=== PATIENT | female | born 1965 | race Hispanic/Latino ===

== ENCOUNTER 2017-04-03 14:29 | Emergency (ER) | payer MEDICARE ==
[2017-04-03 15:07] LABS: BASOPHILS % (AUTO) 0.9 % (0.0-5.0); EOSINOPHILS % (AUTO) 1.6 % (0.0-8.0); HEMATOCRIT 33.6 % (36-48); LYMPHOCYTES % (AUTO) 26.2 % (21.0-51.0); MEAN CORPUSCULAR HEMOGLOBIN 31.9 pg (27.0-33.0); MEAN CORPUSCULAR HGB CONC 34.8 g/dL (32.0-36.0); MEAN CORPUSCULAR VOLUME 91.8 fL (79-99); MONOCYTES % (AUTO) 7.4 % (3.0-13.0); NEUTROPHILS % (AUTO) 63.9 % (40.0-77.0); PLATELET COUNT (AUTO) 290 K/uL (130-400); RED BLOOD CELL COUNT(AUTO) 3.66 MIL/uL (4.00-5.50); RED CELL DISTRIBUTION WIDTH 14.9 % (11.0-15.5); WHITE BLOOD COUNT (AUTO) 9.2 K/uL (4.8-10.8)
[2017-04-03] MEDS ORDERED: ACETAMINOPHEN EXTRA STRENGTH 500 MG TABLET ONE (15:51)
[2017-04-03 15:58] LABS: ALBUMIN 3.3 g/dL (3.5-5.0); BILIRUBIN,TOTAL 0.3 mg/dL (0.2-1.0); POTASSIUM 4.7 mmol/L (3.5-5.1); TOTAL PROTEIN, SERUM 6.9 g/dL (6.0-8.3)
[2017-04-03 16:23] LABS: CREATININE 8.4 mg/dL (0.5-1.5)
== END 2017-04-03 17:09 | disposition home or self-care (01) ==
LOC: EDH 14:29
DX: I12.0 Hypertensive chronic kidney disease with stage 5 chronic kidney disease or end stage renal disease (principal); N18.6 End stage renal disease; R51 Headache; Z99.2 Dependence on renal dialysis
CPT/HCPCS: 36415; 80053; 85025; 93005

== ENCOUNTER → 2017-11-20 | Outpatient (CLI) | payer MEDICARE | END | disposition home or self-care (01) | LOC: SHCH 08:15 | PROVIDERS: ATTEND Internal Medicine Cardiovascular Disease | DX: I10 Essential (primary) hypertension (principal); R01.1 Cardiac murmur, unspecified | CPT/HCPCS: 93306 ==

== ENCOUNTER → 2017-12-17 | Outpatient (CLI) | payer MEDICARE ==
[~2017-12-17] VITALS: Ht 170.2 cm; Wt 121.6 kg
[~2017-12-17] MED LIST: REGADENOSON 0.4 MG/5 ML PF SYG IVP SCH
== END | disposition home or self-care (01) ==
LOC: SHCH 07:55
PROVIDERS: ATTEND Internal Medicine Cardiovascular Disease
DX: R06.02 Shortness of breath (principal)
CPT/HCPCS: 78452; 93017; 96374; A9500 ×2; J2785

== ENCOUNTER → 2017-12-24 | Outpatient (CLI) | payer MEDICARE | END | disposition home or self-care (01) | LOC: SHCH 13:52 | PROVIDERS: ATTEND Internal Medicine Cardiovascular Disease | DX: I87.2 Venous insufficiency (chronic) (peripheral) (principal) | CPT/HCPCS: 93970 ==

== ENCOUNTER 2018-06-28 21:03 | Inpatient (IN) | payer MEDICARE ==
[~2018-06-28] VITALS: Ht 172.7 cm; Wt 119.4 kg
[2018-06-28 21:37] LABS: BASOPHILS % (AUTO) 0.4 % (0.0-5.0); EOSINOPHILS % (AUTO) 1.1 % (0.0-8.0); HEMATOCRIT 34.3 % (36-48); LYMPHOCYTES % (AUTO) 14.6 % (21.0-51.0); MEAN CORPUSCULAR HEMOGLOBIN 33.4 pg (27.0-33.0); MEAN CORPUSCULAR HGB CONC 35.1 g/dL (32.0-36.0); MONOCYTES % (AUTO) 6.6 % (3.0-13.0); NEUTROPHILS % (AUTO) 77.3 % (40.0-77.0); NUCLEATED RED BLOOD CELLS 0.1 % (0.0-0.19); PLATELET COUNT (AUTO) 262 K/uL (130-400); RED BLOOD CELL COUNT(AUTO) 3.61 MIL/uL (4.00-5.50); RED CELL DISTRIBUTION WIDTH 14.6 % (11.0-15.5); WHITE BLOOD COUNT (AUTO) 10.3 K/uL (4.8-10.8)
[2018-06-28 21:47] LABS: INR 0.89 (0.85-1.15); PARTIAL THROMBOPLASTIN TIME 28.3 SEC (26.3-35.5); PROTHROMBIN TIME 9.4 SEC (9.6-11.6)
[2018-06-28 21:49] LABS: APPEARANCE,URINE SL CLOUDY (CLEAR); BILIRUBIN,URINE NEGATIVE (NEGATIVE); COLOR,URINE YELLOW (YELLOW); GLUCOSE, URINE (UA) NEGATIVE (NEGATIVE); KETONES,URINE NEGATIVE (NEGATIVE); LEUKOCYTE ESTERASE ,URINE NEGATIVE (NEGATIVE); NITRATE,URINE NEGATIVE (NEGATIVE); OCCULT BLOOD,URINE SMALL (NEGATIVE); PH,URINE >=9.0 (5.0-8.0); PROTEIN,URINE 100 mg/dL (NEGATIVE); UROBILINOGEN,URINE 0.2 mg/dL (0.2-1.0)
[2018-06-28 21:51] LABS: CREATININE 5.5 mg/dL (0.5-1.5); POTASSIUM 4.1 mmol/L (3.5-5.1)
[2018-06-28 21:55] LABS: ALBUMIN 3.7 g/dL (3.5-5.0); BILIRUBIN,TOTAL 0.3 mg/dL (0.2-1.0); TOTAL PROTEIN, SERUM 7.3 g/dL (6.0-8.3)
[2018-06-28 22:14] LABS: BACTERIA,URINE Few /HPF (None Seen); RBC,URINE 0-1 /HPF (0-1); SQUAMOUS EPITHELIAL CELL,UR Few /HPF (0-2); TRANSITIONAL EPI CELLS,URINE Rare /HPF (None Seen); WBC,URINE 0-1 /HPF (0-1)
[2018-06-28] MEDS ORDERED: TRAMADOL HCL 50 MG TABLET ONE (22:54)
[2018-06-28] MEDS ORDERED: ZOSYN 3.375GM+NS 50ML 50 ML IV ONE (22:57)
[2018-06-28] MEDS ORDERED: PANTOPRAZOLE SODIUM 40 MG TABLET.DR PO ONE (23:17)
[2018-06-28] MEDS ORDERED: METHYLPREDNISOLONE SOD SUCC 40MG/ML 1ML ONE (23:17)
[2018-06-28] MEDS ORDERED: VANCOMYCIN 1GM+NS 250ML 500 ML IV ONE (23:41)
[2018-06-28] MEDS ORDERED: VANCOMYCIN PROTOCOL PER PHARMACY IV SCH (23:45)
[2018-06-28] MEDS ORDERED: ACETAMINOPHEN 325 MG TAB PO PRN (23:45)
[2018-06-29] VITALS (7 sets, daily range): BP systolic 130–158; BP diastolic 57–86
[2018-06-29] MEDS ORDERED: VANCOMYCIN 2 GM in SODIUM CHLORIDE 0.9% 500ML 500 ML IV SCH (02:00)
--- NOTE | 2018-06-29 02:12 | NUR ---
ADMIT Admitted from ER,English speaking.Placed on Droplet precaution for Dx Pneumonia.Pt denies sob,c/o pain to her back.Admission care rendered.Home meds pending to be brought in per family.
--- NOTE | 2018-06-29 03:12 | NUR ---
ASLEEP Pt asleep during rounds.Not in distress.
[2018-06-29 04:24] LABS: HEMATOCRIT 32.8 % (36-48); MEAN CORPUSCULAR HEMOGLOBIN 31.8 pg (27.0-33.0); MEAN CORPUSCULAR HGB CONC 33.5 g/dL (32.0-36.0); MEAN CORPUSCULAR VOLUME 94.8 fL (79-99); PLATELET COUNT (AUTO) 273 K/uL (130-400); RED BLOOD CELL COUNT(AUTO) 3.46 MIL/uL (4.00-5.50); RED CELL DISTRIBUTION WIDTH 14.5 % (11.0-15.5); WHITE BLOOD COUNT (AUTO) 8.8 K/uL (4.8-10.8)
[2018-06-29 04:38] LABS: ALBUMIN 3.4 g/dL (3.5-5.0); BILIRUBIN,TOTAL 0.4 mg/dL (0.2-1.0); CREATININE 6.3 mg/dL (0.5-1.5); POTASSIUM 4.5 mmol/L (3.5-5.1); TOTAL PROTEIN, SERUM 7.2 g/dL (6.0-8.3)
[2018-06-29] MEDS ORDERED: VANCOMYCIN PROTOCOL PER PHARMACY IV SCH (06:30)
--- NOTE | 2018-06-29 06:33 | NUR ---
MD Dr MYRTLE SNYDER rounding.Notified of pt.s c/o of pain to her back,see new order.
[2018-06-29] MEDS: IPRATROPIUM/ALBUTEROL SULFATE 3 ML SOLUTION IH SCH ×3 (06:56→21:40)
--- NOTE | 2018-06-29 07:37 | NUR ---
VANCOMYCIN Pt received 2 gm Vancomycin in ER last night,pharmacy made aware.
[2018-06-29] MEDS: METHYLPREDNISOLONE SOD SUCC 40MG/ML 1ML IVP SCH ×2 (08:59→20:44)
[2018-06-29] MEDS: PANTOPRAZOLE SODIUM 40 MG TABLET.DR PO SCH (08:59)
[2018-06-29] MEDS: ACETAMINOPHEN-CODEINE 300/30MG TAB PO PRN ×2 (09:00→20:48)
[2018-06-29] MEDS: ZOSYN 3.375GM+NS 50ML 50 ML IV SCH ×2 (11:07→22:54)
--- NOTE | 2018-06-29 14:57 | NUR ---
RD Notification Patient tolerating current Renal Dialysis diet, Fluid restriction 1000mL, with no report of GI distress and PO intake at 100%. Patient with Dialysis. RD provided dialysis diet education with Sami translation. RD provided reference materials and handouts. Patient verbalized understanding. Patient LBM 06/26/18. Patient monitored labs: BUN 33, Cr 6.3, GFR 7, Glu 176, Alb 3.4. RD to continue to monitor. Please notify RD as nutritional concerns arise. Thank you. Addendum: 06/29/18 at [address] Amended: Links added.
--- NOTE | 2018-06-29 15:01 | NUR ---
DCP CM met with pt discussed dc plans. Pt is independent prior to admission, lives at home alone, daughter lives close by. Denies any equipments/services. Pt feels safe to go back home, still drives, daughter able to assist with transportation and needs as necessary. DC plan to home once stable. CM to cont to follow up. Addendum: 06/29/18 at 1502 by JENNIFFER JASMINE LVN CM Amended: Links added.
--- NOTE | 2018-06-29 15:03 | NUR ---
Diet Education JESSICA provided Renal Dialysis Diet education with [place] translation per RN. JESSICA provided reference materials and handouts in [place]. Patient verbalized understanding. RD to follow up. Addendum: 06/29/18 at [address] Amended: Links added.
--- NOTE | 2018-06-29 15:31 | NUR ---
PATIENT C/O ANXIETY AND REPORTS THAT SHE TAKES ANTIANXIETY MED TID. HER FAMILY IS YET TO BRING HER HOME MEDICATIONS FOR RECONCILIATION TO TAKE PLACE. DR MYRTLE SNYDER WAS PAGED WITH PENDING CALL BACK.
[2018-06-29] MEDS: ALPRAZOLAM 0.25 MG TABLET PO PRN (16:01)
[2018-06-29] MEDS ORDERED: CALC667T5 PO (20:42)
[2018-06-29] MEDS ORDERED: FOLI1TAB85 PO (20:42)
--- NOTE | 2018-06-29 20:43 | NUR ---
HOME MEDS Pt brought 2 home meds,states unknown metropolol dose.
[2018-06-30] MEDS: ALPRAZOLAM 0.25 MG TABLET PO PRN (00:15)
--- NOTE | 2018-06-30 00:29 | NUR ---
ANXIETY Pt medicated with Xanax for anxiety. Addendum: 06/30/18 at 0030 by JENNIFER HENDRIX RN RN Amended: Links added.
[2018-06-30 03:00] VITALS: BP 135/66
[2018-06-30 05:06] LABS: BASOPHILS % (AUTO) 0.1 % (0.0-5.0); HEMATOCRIT 29.4 % (36-48); LYMPHOCYTES % (AUTO) 5.4 % (21.0-51.0); MEAN CORPUSCULAR HEMOGLOBIN 32.9 pg (27.0-33.0); MEAN CORPUSCULAR HGB CONC 34.2 g/dL (32.0-36.0); MEAN CORPUSCULAR VOLUME 96.4 fL (79-99); NEUTROPHILS % (AUTO) 90.5 % (40.0-77.0); PLATELET COUNT (AUTO) 237 K/uL (130-400); RED BLOOD CELL COUNT(AUTO) 3.05 MIL/uL (4.00-5.50); RED CELL DISTRIBUTION WIDTH 14.8 % (11.0-15.5); WHITE BLOOD COUNT (AUTO) 11.8 K/uL (4.8-10.8)
[2018-06-30 05:30] LABS: POTASSIUM 5.1 mmol/L (3.5-5.1); VANCOMYCIN LEVEL 23.4 mcg/mL (18.0-26.0)
[2018-06-30 05:35] LABS: CREATININE 8.4 mg/dL (0.5-1.5)
[2018-06-30] MEDS: IPRATROPIUM/ALBUTEROL SULFATE 3 ML SOLUTION IH SCH (06:50)
[2018-06-30 07:00] VITALS: BP 159/86
[2018-06-30] MEDS ORDERED: BISACODYL 10 MG SUPP.RECT RC SCH (08:00)
[2018-06-30] MEDS: PANTOPRAZOLE SODIUM 40 MG TABLET.DR PO SCH (08:28)
[2018-06-30] MEDS: METHYLPREDNISOLONE SOD SUCC 40MG/ML 1ML IVP SCH (08:28)
[2018-06-30] MEDS ORDERED: FOLIC ACID/VITAMIN B COMP W-C 1 MG CAPSULE PO SCH (09:00)
--- NOTE | 2018-06-30 10:57 | NUR ---
PATIENT DISCHARGED PATIENT DISCHARGED, IV DISCONTINUED, CATHLON INTACT, BLEEDING CONTROLLED, PATIENT TOLERATED WITHOUT INCIDENT.
[2018-06-30] MEDS ORDERED: CALCIUM ACETATE 667 MG CAPSULE PO SCH (12:00)
[2018-06-30] MEDS ORDERED: VANCOMYCIN 1GM+NS 250ML IV SCH (18:00)
== END 2018-06-30 11:50 | disposition home or self-care (01) | DRG 193 ==
LOC: EDH 21:03 → EDHIP 23:00 → 3CH 06-29 01:16
PROVIDERS: ADMIT Internal Medicine Nephrology; ATTEND Internal Medicine Nephrology
DX: J18.9 Pneumonia, unspecified organism (principal); N18.6 End stage renal disease; I12.0 Hypertensive chronic kidney disease with stage 5 chronic kidney disease or end stage renal disease; M19.90 Unspecified osteoarthritis, unspecified site; F32.9 Major depressive disorder, single episode, unspecified; D63.1 Anemia in chronic kidney disease; E78.5 Hyperlipidemia, unspecified; G89.29 Other chronic pain; J45.909 Unspecified asthma, uncomplicated; E05.90 Thyrotoxicosis, unspecified without thyrotoxic crisis or storm; Z96.651 Presence of right artificial knee joint; Y95 Nosocomial condition; T38.0X5A Adverse effect of glucocorticoids and synthetic analogues, initial encounter; Y92.89 Other specified places as the place of occurrence of the external cause; Z99.2 Dependence on renal dialysis; Z90.710 Acquired absence of both cervix and uterus
CPT/HCPCS: 36415; 71045; 71250; 80048; 80053; 80202; 81001; 82550; 83605; 83880; 84484; 85025; 85027; 85610; 85730; 87040; 93005; 94640; 94664; G0378; J2543; J2920; J3370; J7040

== ENCOUNTER 2019-03-23 07:07 | Day surgery (SDC) | payer OTHER, MEDICARE ==
[~2019-03-23] VITALS: Ht 170.2 cm; Wt 122.5 kg
[~2019-03-23 07:07] MED LIST changes: +CALC667T6 PO; +FOLI1TAB85 PO; +FURO20TA4 PO; +METO-408 PO; -REGADENOSON 0.4 MG/5 ML PF SYG IVP SCH; +SODIUM CHLORIDE 0.9% 1000ML 1,000 ML IV ONE
[2019-03-23 08:09] VITALS: BP 146/80
[2019-03-23] MEDS ORDERED: PROPOFOL 10 MG/ML 20ML VIAL IV ONE ×2 (08:24)
[2019-03-23] MEDS ORDERED: LIDOCAINE HCL 1% 20 ML VIAL ONE (08:24)
[2019-03-23] MEDS ORDERED: GLYCOPYRROLATE 0.2 MG/ML 5 ML VIAL ONE (08:42)
[2019-03-23 08:50] VITALS: BP 140/80
[2019-03-23 09:10] VITALS: BP 145/82
[2019-03-23 10:33] VITALS: BP 130/95
== END 2019-03-23 09:20 | disposition home or self-care (01) ==
LOC: ENDO 07:07 → DAH 07:07 → ENDO 09:20
PROVIDERS: ATTEND Internal Medicine Gastroenterology
DX: R19.4 Change in bowel habit (principal); K29.70 Gastritis, unspecified, without bleeding; B96.20 Unspecified Escherichia coli [E. coli] as the cause of diseases classified elsewhere; K31.89 Other diseases of stomach and duodenum; K26.9 Duodenal ulcer, unspecified as acute or chronic, without hemorrhage or perforation; K22.8 Other specified diseases of esophagus; K57.30 Diverticulosis of large intestine without perforation or abscess without bleeding; E66.9 Obesity, unspecified; I11.9 Hypertensive heart disease without heart failure; K21.9 Gastro-esophageal reflux disease without esophagitis; N18.6 End stage renal disease; Z86.010 Personal history of colon polyps; Z79.899 Other long term (current) drug therapy; Z90.49 Acquired absence of other specified parts of digestive tract; Z98.890 Other specified postprocedural states; Z90.710 Acquired absence of both cervix and uterus
CPT/HCPCS: 36415; 43239; 45380; 84132; 88305; A4215; A4221; A4222; A4223; A4606; A4620; A4663; J2704 ×2; J3490; J7030

== ENCOUNTER 2019-04-28 14:34 | Observation (INO) | payer OTHER, MEDICARE ==
[~2019-04-28] VITALS: Ht 170.2 cm; Wt 124.9 kg
[~2019-04-28 14:34] MED LIST changes: -SODIUM CHLORIDE 0.9% 1000ML 1,000 ML IV ONE
[2019-04-28] MEDS ORDERED: MORPHINE SULFATE 4 MG/1ML SYG ONE (14:57)
[2019-04-28] MEDS ORDERED: ONDANSETRON HCL 4 MG/2 ML VIAL ONE (14:57)
[2019-04-28] MEDS ORDERED: DEXTROSE 50%-WATER 50 ML DISP.SYRIN IV ONE (14:58)
[2019-04-28 15:14] LABS: BASOPHILS % (AUTO) 0.4 % (0.0-5.0); EOSINOPHILS % (AUTO) 0.8 % (0.0-8.0); HEMATOCRIT 39.2 % (36-48); LYMPHOCYTES % (AUTO) 12.9 % (21.0-51.0); MEAN CORPUSCULAR HEMOGLOBIN 31.1 pg (27.0-33.0); MEAN CORPUSCULAR HGB CONC 31.9 g/dL (32.0-36.0); MEAN CORPUSCULAR VOLUME 97.5 fL (79-99); MONOCYTES % (AUTO) 6.3 % (3.0-13.0); NEUTROPHILS % (AUTO) 79.1 % (40.0-77.0); PLATELET COUNT (AUTO) 246 K/uL (130-400); RED BLOOD CELL COUNT(AUTO) 4.02 MIL/uL (4.00-5.50); RED CELL DISTRIBUTION WIDTH 13.7 % (11.0-15.5)
[2019-04-28 15:20] LABS: CREATININE 5.8 mg/dL (0.5-1.5); POTASSIUM 4.6 mmol/L (3.5-5.1)
[2019-04-28 15:25] LABS: ALBUMIN 3.5 g/dL (3.5-5.0); BILIRUBIN,TOTAL 0.7 mg/dL (0.2-1.0)
[2019-04-28 15:55] LABS: INR 0.9 (0.85-1.15); PARTIAL THROMBOPLASTIN TIME 28.2 SEC (26.3-35.5); PROTHROMBIN TIME 9.5 SEC (9.6-11.6)
[2019-04-29 02:00] VITALS: BP 132/68
[2019-04-29] MEDS ORDERED: ACETAMINOPHEN-CODEINE 300/30MG TAB ONE (02:41)
[2019-04-29] MEDS ORDERED: ACETAMINOPHEN-CODEINE 300/30MG TAB PO PRN (02:45)
[2019-04-29 04:01] VITALS: BP 121/48
[2019-04-29] MEDS ORDERED: CYCLOBENZAPRINE HCL 10 MG TABLET ONE (06:34)
[2019-04-29] MEDS: CYCLOBENZAPRINE HCL 10 MG TABLET PO SCH ×2 (06:43→06:46)
[2019-04-29 06:50] LABS: TROPONIN I 0.18 ng/mL (0.00-0.06)
[2019-04-29 08:22] VITALS: BP 121/57
--- NOTE | 2019-04-29 09:00 | NUR ---
GURMEET NOTES CHART REVIEWED, CHEST PAIN DURING HD, OBS STATUS , NEGATIVE WORKUP...EXPECTING DC TODAY- IF NOT TODAY THEN AFTER HD TOMORROW. WILL REVISIT FOR IA IF PATIENT IS NOT DISCHARGED THIS AFTERNOON. Addendum: 04/29/19 at 1919 by JAKOB FRASER RN CM Amended: Links added.
[2019-04-29 10:05] LABS: POTASSIUM 4.7 mmol/L (3.5-5.1)
[2019-04-29 10:08] LABS: CREATININE 8.4 mg/dL (0.5-1.5)
[2019-04-29 12:10] VITALS: BP 122/58
[2019-04-29 16:00] VITALS: BP 133/67
[2019-04-29] MEDS: ASPIRIN 81MG TAB.CHEW PO SCH (17:16)
[2019-04-29] MEDS: METOPROLOL SUCCINATE 50 MG TAB.SR.24H PO SCH ×2 (17:16→23:01)
[2019-04-29 19:52] VITALS: BP 137/57
[2019-04-29] MEDS ORDERED: METOPROLOL SUCCINATE 50 MG TAB.SR.24H PO SCH (21:00)
[2019-04-30 00:06] VITALS: BP 128/65
[2019-04-30 04:20] VITALS: BP 118/77
[2019-04-30 05:15] LABS: HEMATOCRIT 34.7 % (36-48); MEAN CORPUSCULAR HEMOGLOBIN 31.1 pg (27.0-33.0); MEAN CORPUSCULAR HGB CONC 30.8 g/dL (32.0-36.0); MEAN CORPUSCULAR VOLUME 100.9 fL (79-99); PLATELET COUNT (AUTO) 240 K/uL (130-400); RED BLOOD CELL COUNT(AUTO) 3.44 MIL/uL (4.00-5.50); RED CELL DISTRIBUTION WIDTH 13.8 % (11.0-15.5); WHITE BLOOD COUNT (AUTO) 8.4 K/uL (4.8-10.8)
[2019-04-30 05:49] LABS: BASOPHILS % (MANUAL) 1 % (0-2); EOSINOPHILS % (MANUAL) 6 % (1-6); LYMPHOCYTES % (MANUAL) 33 % (22-44); MAN.DIFF COMMENT-IMPRESSION MANUAL DIFFERENTIAL; MONOCYTES % (MANUAL) 4 % (2-9); SEGMENTED NEUTROPHILS % 56 % (40-70)
[2019-04-30 05:51] LABS: PLATELET MORPHOLOGY COMMENT ADEQUATE
[2019-04-30 07:30] VITALS: BP 122/64
[2019-04-30] MEDS ORDERED: CALCIUM ACETATE 667 MG CAPSULE PO SCH (08:00)
[2019-04-30] MEDS ORDERED: FUROSEMIDE 20 MG TABLET PO SCH (08:00)
[2019-04-30] MEDS: METOPROLOL SUCCINATE 50 MG TAB.SR.24H PO SCH (09:00)
[2019-04-30] MEDS ORDERED: FOLIC ACID/VITAMIN B COMP W-C 1 MG CAP/TAB PO SCH (09:00)
[2019-04-30 11:00] VITALS: BP 105/61
[2019-04-30] MEDS: ASPIRIN 81MG TAB.CHEW PO SCH (12:25)
== END 2019-04-30 13:15 | disposition home or self-care (01) ==
LOC: EDH 14:34 → EDHIP 17:00 → 4DH 04-29 00:56
PROVIDERS: ADMIT Internal Medicine Nephrology; ATTEND Internal Medicine Nephrology
DX: I12.0 Hypertensive chronic kidney disease with stage 5 chronic kidney disease or end stage renal disease (principal); N18.6 End stage renal disease; D63.1 Anemia in chronic kidney disease; E66.01 Morbid (severe) obesity due to excess calories; E78.5 Hyperlipidemia, unspecified; I87.2 Venous insufficiency (chronic) (peripheral); R42 Dizziness and giddiness; E06.9 Thyroiditis, unspecified; Z72.0 Tobacco use; Z91.19 Patient's noncompliance with other medical treatment and regimen; Z99.2 Dependence on renal dialysis; Z91.15 Patient's noncompliance with renal dialysis; Z90.710 Acquired absence of both cervix and uterus; Z90.49 Acquired absence of other specified parts of digestive tract
CPT/HCPCS: 36415 ×3; 71045; 74176; 80048; 80053; 82550 ×2; 82948; 83874; 84484 ×3; 85025 ×2; 85610; 85730; 93005; 99285; G0378 ×8; J2270; J2405; J7070; 90935

== ENCOUNTER → 2019-05-13 | Outpatient (CLI) | payer OTHER, MEDICARE | END | disposition home or self-care (01) | LOC: RAH 10:39 | PROVIDERS: ATTEND Internal Medicine Gastroenterology | DX: R10.13 Epigastric pain (principal); R11.0 Nausea | CPT/HCPCS: 78264; A9541 ==

== ENCOUNTER 2019-05-25 22:30 | Emergency (ER) | payer OTHER, MEDICARE ==
[2019-05-25] MEDS ORDERED: ORPHENADRINE CITRATE 30 MG/ML ML ONE (23:00)
[2019-05-25] MEDS ORDERED: KETOROLAC TROMETHAMINE 60 MG/2 ML VIAL ONE (23:00)
== END 2019-05-25 23:46 | disposition home or self-care (01) ==
LOC: EDH 22:30
DX: M54.5 Low back pain (principal); M62.830 Muscle spasm of back; I12.0 Hypertensive chronic kidney disease with stage 5 chronic kidney disease or end stage renal disease; N18.6 End stage renal disease; Z72.0 Tobacco use
CPT/HCPCS: 96372 ×2; 99284; J1885; J2360

== ENCOUNTER 2019-06-11 07:26 | Emergency (ER) | payer OTHER, MEDICARE ==
[2019-06-11 09:52] LABS: RAPID GROUP A STREP NEGATIVE (NEGATIVE)
== END 2019-06-11 10:17 | disposition home or self-care (01) ==
LOC: EDH 07:26
DX: J06.9 Acute upper respiratory infection, unspecified (principal); I12.0 Hypertensive chronic kidney disease with stage 5 chronic kidney disease or end stage renal disease; E11.22 Type 2 diabetes mellitus with diabetic chronic kidney disease; N18.6 End stage renal disease; K21.9 Gastro-esophageal reflux disease without esophagitis
CPT/HCPCS: 71046; 87804; 87880

== ENCOUNTER 2019-07-31 16:11 | Emergency (ER) | payer OTHER, MEDICARE ==
[2019-07-31] MEDS ORDERED: TRAMADOL HCL 50 MG TABLET ONE (19:02)
== END 2019-07-31 19:32 | disposition home or self-care (01) ==
LOC: EDH 16:11
DX: S09.90XA Unspecified injury of head, initial encounter (principal); R42 Dizziness and giddiness; R10.9 Unspecified abdominal pain; R11.0 Nausea; Z72.0 Tobacco use; Z99.2 Dependence on renal dialysis; I12.0 Hypertensive chronic kidney disease with stage 5 chronic kidney disease or end stage renal disease; E11.22 Type 2 diabetes mellitus with diabetic chronic kidney disease; N18.6 End stage renal disease; W17.89XA Other fall from one level to another, initial encounter; Y93.89 Activity, other specified; Y92.89 Other specified places as the place of occurrence of the external cause; Y99.8 Other external cause status

== ENCOUNTER → 2019-11-04 | Outpatient (CLI) | payer OTHER, MEDICARE | END | disposition home or self-care (01) | LOC: RAH 07:47 | PROVIDERS: ATTEND Internal Medicine | DX: K76.0 Fatty (change of) liver, not elsewhere classified (principal) | CPT/HCPCS: 76705 ==

== ENCOUNTER → 2019-12-07 | Outpatient (CLI) | payer OTHER, MEDICARE ==
[~2019-12-07] MED LIST changes: +SODIUM CHLORIDE 0.9% 1000ML 1,000 ML IV ONE
== END | disposition home or self-care (01) ==
LOC: DAH 10:00 → EDSTATUS 12-12 08:00
PROVIDERS: ATTEND Surgery
DX: Z01.818 Encounter for other preprocedural examination (principal); Z20.828 Contact with and (suspected) exposure to other viral communicable diseases; K21.9 Gastro-esophageal reflux disease without esophagitis
CPT/HCPCS: 36415; C9803; U0003; J7030

== ENCOUNTER 2020-02-04 18:03 | Emergency (ER) | payer OTHER, MEDICARE ==
[~2020-02-04 18:03] MED LIST changes: -SODIUM CHLORIDE 0.9% 1000ML 1,000 ML IV ONE
[2020-02-04] MEDS ORDERED: ASPIRIN 325 MG TABLET ONE (18:32)
[2020-02-04] MEDS ORDERED: CEFTRIAXONE SODIUM 1 GM ONE (18:32)
[2020-02-04] MEDS ORDERED: DEXAMETHASONE SOD PHOSPHATE 10MG/ML 1ML VIAL ONE (18:32)
[2020-02-04] MEDS ORDERED: ALBUTEROL INHALER 90MCG/INH IH ONE (18:32)
[2020-02-04] MEDS ORDERED: ACETAMINOPHEN-CODEINE 300/30MG TAB ONE (18:33)
[2020-02-04] MEDS ORDERED: AZITHROMYCIN 250 MG TABLET PO ONE (18:33)
[2020-02-04 18:45] LABS: BASOPHILS % (AUTO) 0.6 % (0.0-5.0); HEMATOCRIT 34.4 % (36-48); LYMPHOCYTES % (AUTO) 22.6 % (21.0-51.0); MEAN CORPUSCULAR HEMOGLOBIN 30.5 pg (27.0-33.0); MEAN CORPUSCULAR HGB CONC 31.7 g/dL (32.0-36.0); MEAN CORPUSCULAR VOLUME 96.4 fL (79-99); MONOCYTES % (AUTO) 5.3 % (3.0-13.0); NEUTROPHILS % (AUTO) 63.3 % (40.0-77.0); PLATELET COUNT (AUTO) 308 K/uL (130-400); RED BLOOD CELL COUNT(AUTO) 3.57 MIL/uL (4.00-5.50); RED CELL DISTRIBUTION WIDTH 13.2 % (11.0-15.5); WHITE BLOOD COUNT (AUTO) 8.1 K/uL (4.8-10.8)
[2020-02-04 18:46] LABS: RAPID GROUP A STREP NEGATIVE (NEGATIVE)
[2020-02-04 18:49] LABS: INR 0.88 (0.85-1.15); PARTIAL THROMBOPLASTIN TIME 29.5 SEC (26.3-35.5); PROTHROMBIN TIME 9.6 SEC (9.6-11.6)
[2020-02-04 18:54] LABS: ALBUMIN 3.7 g/dL (3.5-5.0); BILIRUBIN,TOTAL 0.3 mg/dL (0.2-1.0); POTASSIUM 4.3 mmol/L (3.5-5.1); TOTAL PROTEIN, SERUM 7.6 g/dL (6.0-8.3)
[2020-02-04 19:07] LABS: CREATININE 11.1 mg/dL (0.5-1.5)
== END 2020-02-04 19:47 | disposition home or self-care (01) ==
LOC: EDH 18:03
DX: J18.9 Pneumonia, unspecified organism (principal); Z20.828 Contact with and (suspected) exposure to other viral communicable diseases; I12.0 Hypertensive chronic kidney disease with stage 5 chronic kidney disease or end stage renal disease; E11.22 Type 2 diabetes mellitus with diabetic chronic kidney disease; N18.6 End stage renal disease; Z90.49 Acquired absence of other specified parts of digestive tract; Z98.890 Other specified postprocedural states; Z72.0 Tobacco use
CPT/HCPCS: 36415; 71045; 80053; 82550; 84484; 85025; 85610; 85730; 87426; 87804 ×2; 87880; 93005; 96374; 96375; 99285; J0696; J1100; U0003

== ENCOUNTER 2020-04-06 06:34 | Day surgery (SDC) | payer OTHER, MEDICARE ==
[~2020-04-06] VITALS: Ht 170.2 cm; Wt 119.3 kg
[2020-04-06] VITALS (8 sets, daily range): BP systolic 133–158; BP diastolic 66–80
[2020-04-06 08:08] LABS: POTASSIUM 5.2 mmol/L (3.5-5.1)
[2020-04-06 08:13] LABS: CREATININE 8.7 mg/dL (0.5-1.5)
[2020-04-06] MEDS: SODIUM CHLORIDE 0.9% 1000ML 1,000 ML IV ONE (09:37)
== END 2020-04-06 09:30 | disposition home or self-care (01) ==
LOC: DAH 06:34
PROVIDERS: ATTEND Surgery
DX: K21.9 Gastro-esophageal reflux disease without esophagitis (principal); Z20.822 Contact with and (suspected) exposure to COVID-19; I12.0 Hypertensive chronic kidney disease with stage 5 chronic kidney disease or end stage renal disease; N18.6 End stage renal disease; E66.9 Obesity, unspecified; Z86.718 Personal history of other venous thrombosis and embolism; Z90.49 Acquired absence of other specified parts of digestive tract; Z98.891 History of uterine scar from previous surgery; Z98.890 Other specified postprocedural states; Z87.891 Personal history of nicotine dependence; Z99.2 Dependence on renal dialysis
CPT/HCPCS: 36415; 43235; 80048; A4215 ×2; A4221; A4222; A4223; A4606; A4620; A4657; A4663; C9803; J7030; U0003

== ENCOUNTER → 2020-05-07 | Outpatient (CLI) | payer OTHER, MEDICARE | END | disposition home or self-care (01) | LOC: RAH 09:03 | PROVIDERS: ATTEND Internal Medicine | DX: I08.0 Rheumatic disorders of both mitral and aortic valves (principal); I50.30 Unspecified diastolic (congestive) heart failure; R55 Syncope and collapse | CPT/HCPCS: 93306 ==

== ENCOUNTER → 2020-05-10 | Outpatient (CLI) | payer OTHER, MEDICARE | END | disposition home or self-care (01) | LOC: RAH 10:34 | PROVIDERS: ATTEND Internal Medicine | DX: R10.2 Pelvic and perineal pain (principal); R59.9 Enlarged lymph nodes, unspecified | CPT/HCPCS: 76856 ==

== ENCOUNTER 2020-07-16 08:00 | Inpatient (IN) | payer OTHER, MEDICARE ==
[~2020-07-16] VITALS: Ht 170.2 cm; Wt 120.7 kg
[~2020-07-16 08:00] MED LIST changes: -FOLI1TAB85 PO; -FURO20TA4 PO
[2020-08-23 09:44] LABS: BASOPHILS % (AUTO) 0.6 % (0.0-5.0); EOSINOPHILS % (AUTO) 1.7 % (0.0-8.0); HEMATOCRIT 37.1 % (36-48); LYMPHOCYTES % (AUTO) 25.4 % (21.0-51.0); MEAN CORPUSCULAR VOLUME 96.9 fL (79-99); MONOCYTES % (AUTO) 8.3 % (3.0-13.0); NEUTROPHILS % (AUTO) 63.8 % (40.0-77.0); PLATELET COUNT (AUTO) 312 K/uL (130-400); RED BLOOD CELL COUNT(AUTO) 3.83 MIL/uL (4.00-5.50); RED CELL DISTRIBUTION WIDTH 13.6 % (11.0-15.5); WHITE BLOOD COUNT (AUTO) 6.4 K/uL (4.8-10.8)
[2020-08-23 09:53] LABS: INR 0.95 (0.85-1.15); PROTHROMBIN TIME 10.4 SEC (9.6-11.6)
[2020-08-23 09:56] LABS: ALANINE AMINOTRANSFERASE 22 U/L (12-78); ALBUMIN 3.7 g/dL (3.5-5.0); ASPARTATE AMINOTRANSFERASE 24 U/L (10-37); BILIRUBIN,DIRECT < 0.1 mg/dL (0.0-0.3); BILIRUBIN,TOTAL 0.3 mg/dL (0.2-1.0); CARBON DIOXIDE 27 mmol/L (21-32); CHLORIDE 100 mmol/L (101-111); CREATININE 6.6 mg/dL (0.5-1.5); GLOMERULAR FILTR. RATE CALC 7 mL/min (>60); GLUCOSE,RANDOM 114 mg/dL (70-105); POTASSIUM 4.3 mmol/L (3.5-5.1); SODIUM SERUM 136 mmol/L (136-145); TOTAL PROTEIN, SERUM 7.7 g/dL (6.0-8.3); UREA NITROGEN, BLOOD 35 mg/dL (7-18)
[2020-08-23] MEDS: CEFAZOLIN SODIUM 1 GM VIAL IVP SCH (11:30)
[2020-08-24] MEDS: CEFAZOLIN SODIUM 1 GM VIAL IVP SCH (11:30)
[2020-08-24 14:03] VITALS: BP 138/72
[2020-08-24] MEDS ORDERED: CALC-1009 PO (14:33)
[2020-08-24] MEDS ORDERED: bariatric fusion PO (14:33)
[2020-08-25] MEDS: CEFAZOLIN SODIUM 1 GM VIAL IVP SCH (14:30)
[2020-08-27] VITALS (28 sets, daily range): BP systolic 134–195; BP diastolic 59–85
[2020-08-27] MEDS: CEFAZOLIN SODIUM 1 GM VIAL IVP SCH ×3 (11:30→15:30)
[2020-08-27] MEDS ORDERED: METO25TA6 PO (11:55)
[2020-08-27] MEDS ORDERED: 0.9%NACL 500ML 500 ML IV ONE (11:56)
[2020-08-27] MEDS ORDERED: BUPIVACAINE/PF 0.5% 30ML VIAL ONE (12:20)
[2020-08-27] MEDS ORDERED: DEXAMETHASONE SOD PHOSPHATE 10MG/ML 1ML VIAL ONE (12:43)
[2020-08-27] MEDS ORDERED: NEOSTIGMINE 5MG/5ML SYR IV ONE ×2 (12:43→13:47)
[2020-08-27] MEDS ORDERED: ROCURONIUM 10MG/1ML SYR 10 MG/ML ML ONE (12:43)
[2020-08-27] MEDS ORDERED: ONDANSETRON 4MG INJ ONE (12:43)
[2020-08-27] MEDS ORDERED: LIDOCAINE PF 100MG/5ML (2%) SYRINGE 5ML ONE (12:43)
[2020-08-27] MEDS ORDERED: PROPOFOL 10 MG/ML 20ML VIAL IV ONE (12:43)
[2020-08-27] MEDS ORDERED: SUCCINYLCHOLINE 200MG/10ML SYR ONE (12:43)
[2020-08-27] MEDS ORDERED: GLYCOPYRROLATE 1 MG/5 ML SYRINGE ONE ×3 (12:43→14:45)
[2020-08-27] MEDS ORDERED: MIDAZOLAM HCL 1 MG/ML 2ML VIAL ONE (12:43)
[2020-08-27] MEDS ORDERED: FENTANYL CITRATE PF 50 MCG/1 ML 2ML VIAL ONE (12:44)
[2020-08-27] MEDS ORDERED: KETAMINE 50MG/ML SYRINGE 50 MG/ML DISP.SYRIN IV ONE (12:48)
[2020-08-27] MEDS ORDERED: ONDANSETRON 4MG INJ IVP PRN (14:00)
[2020-08-27] MEDS ORDERED: KETOROLAC 30MG VIAL (30MG/ML) IM PRN (14:00)
[2020-08-27] MEDS: LACTATED RINGERS 1000ML 1,000 ML IV SCH (14:00)
[2020-08-27] MEDS ORDERED: APAP/CODEINE 120/12MG 5ML PO PRN (14:00)
[2020-08-27] MEDS ORDERED: MEPERIDINE-PF 25 MG/ML SYG ONE ×2 (14:16→14:25)
[2020-08-27] MEDS ORDERED: LABETALOL 20MG VIAL IV ONE (14:25)
[2020-08-27] MEDS: HYDROMORPHONE 1 MG INJ IVP PRN ×2 (16:28→22:30)
[2020-08-27] MEDS: ENOXAPARIN SODIUM 30 MG/0.3 ML SQ SCH (20:19)
[2020-08-27] MEDS ORDERED: HYDRALAZINE 20MG/ML VIAL IV PRN (21:15)
[2020-08-28] VITALS (12 sets, daily range): BP systolic 153–184; BP diastolic 56–87
[2020-08-28 06:36] LABS: CREATININE 6.8 mg/dL (0.5-1.5); POTASSIUM 4.4 mmol/L (3.5-5.1)
[2020-08-28 06:42] LABS: BASOPHILS % (AUTO) 0.3 % (0.0-5.0); EOSINOPHILS % (AUTO) 0.1 % (0.0-8.0); HEMATOCRIT 37.3 % (36-48); LYMPHOCYTES % (AUTO) 8.3 % (21.0-51.0); MEAN CORPUSCULAR HEMOGLOBIN 30.4 pg (27.0-33.0); MEAN CORPUSCULAR HGB CONC 31.1 g/dL (32.0-36.0); MEAN CORPUSCULAR VOLUME 97.9 fL (79-99); MONOCYTES % (AUTO) 4.1 % (3.0-13.0); NEUTROPHILS % (AUTO) 86.9 % (40.0-77.0); PLATELET COUNT (AUTO) 303 K/uL (130-400); RED BLOOD CELL COUNT(AUTO) 3.81 MIL/uL (4.00-5.50); RED CELL DISTRIBUTION WIDTH 13.7 % (11.0-15.5); WHITE BLOOD COUNT (AUTO) 13.8 K/uL (4.8-10.8)
[2020-08-28] MEDS: ENOXAPARIN SODIUM 30 MG/0.3 ML SQ SCH (08:07)
[2020-08-28] MEDS: CALCIUM AC 667MG CAP PO SCH ×3 (08:07→16:19)
[2020-08-28] MEDS ORDERED: FAMOTIDINE 20MG VIAL IV SCH (09:00)
[2020-08-28] MEDS ORDERED: METOPROLOL TARTRATE 25 MG TAB PO SCH (09:00)
[2020-08-28] MEDS: CEFAZOLIN SODIUM 1 GM VIAL IVP SCH (11:30)
[2020-08-28] MEDS: LACTATED RINGERS 1000ML 1,000 ML IV SCH (14:00)
[2020-08-28] MEDS ORDERED: ACET500P24 PO (18:19)
[2020-08-28] MEDS ORDERED: ONDA4TAB4 PO (18:19)
[2020-08-28] MEDS ORDERED: GABA300S PO (18:19)
[2020-08-28] MEDS ORDERED: PANT40TA PO (18:20)
[2020-08-29 05:12] LABS: HEPATITIS Bs ANTIGEN SCREEN P Negative (Negative)
== END 2020-08-28 19:00 | disposition home or self-care (01) | DRG 619 ==
LOC: DAHIP 08-27 11:00 → 4BH 08-27 14:52
PROVIDERS: ADMIT Surgery; ATTEND Surgery
PROC: 5A1D70Z Performance of Urinary Filtration, Intermittent, Less than 6 Hours Per Day (ICD-10-PCS; 2020-08-27)
PROC: 5A09357 Assistance with Respiratory Ventilation, Less than 24 Consecutive Hours, Continuous Positive Airway Pressure (ICD-10-PCS; 2020-08-27)
PROC: 0DB64Z3 Excision of Stomach, Percutaneous Endoscopic Approach, Vertical (ICD-10-PCS; principal; 2020-08-27 13:07)
PROC: 5A09357 Assistance with Respiratory Ventilation, Less than 24 Consecutive Hours, Continuous Positive Airway Pressure (ICD-10-PCS; 2020-08-28)
DX: E66.01 Morbid (severe) obesity due to excess calories (principal); N18.6 End stage renal disease; I12.0 Hypertensive chronic kidney disease with stage 5 chronic kidney disease or end stage renal disease; Z68.41 Body mass index [BMI] 40.0-44.9, adult; Z20.822 Contact with and (suspected) exposure to COVID-19; D63.1 Anemia in chronic kidney disease; E78.5 Hyperlipidemia, unspecified; E83.39 Other disorders of phosphorus metabolism; E87.5 Hyperkalemia; Z96.651 Presence of right artificial knee joint; F32.9 Major depressive disorder, single episode, unspecified; K21.9 Gastro-esophageal reflux disease without esophagitis; Z90.710 Acquired absence of both cervix and uterus; Z99.2 Dependence on renal dialysis; Z86.718 Personal history of other venous thrombosis and embolism
CPT/HCPCS: 36415; 80048; 80076; 84132; 85025; 85610; 85730; 86704; 86706; 86850; 86900; 86901; 87340; 87635; 90935; 97039; G0378; J0330; J0360; J0690; J1100; J1170; J1650; J1885; J2001; J2175; J2250; J2405; J2704; J2710; J3010; J3490; J7030; J7040; J7120

== ENCOUNTER → 2020-07-19 | Outpatient (CLI) | payer OTHER, MEDICARE ==
[~2020-07-19] VITALS: Ht 170.2 cm; Wt 122.0 kg
[~2020-07-19] MED LIST changes: +FOLI1TAB85 PO; +FURO20TA4 PO; +REGADENOSON 0.4 MG/5 ML PF SYG IVP SCH
== END | disposition home or self-care (01) ==
LOC: SHCH 10:04
PROVIDERS: ATTEND Internal Medicine Cardiovascular Disease
DX: R06.09 Other forms of dyspnea (principal); R07.9 Chest pain, unspecified; R94.31 Abnormal electrocardiogram [ECG] [EKG]
CPT/HCPCS: 78452; 93017; 96374; A9500 ×2

== ENCOUNTER 2021-06-25 16:11 | Emergency (ER) | payer MEDICARE ==
[~2021-06-25] VITALS: Ht 172.7 cm; Wt 97.1 kg
[~2021-06-25 16:11] MED LIST changes: +ACET500P24 PO; +CALC-1009 PO; -FOLI1TAB85 PO; -FURO20TA4 PO; +GABA300S PO; -METO-408 PO; +METO25TA6 PO; +ONDA4TAB4 PO; +PANT40TA PO; -REGADENOSON 0.4 MG/5 ML PF SYG IVP SCH
[2021-06-25] MEDS ORDERED: LACT10SO5 PO (17:59)
[2021-06-25] MEDS ORDERED: ACETAMINOPHEN 500 MG TABLET ONE (18:00)
[2021-06-25 18:02] VITALS: BP 146/87
[2021-06-25 18:27] LABS: APPEARANCE,URINE Clear (CLEAR); BILIRUBIN,URINE Negative (NEGATIVE); COLOR,URINE Yellow (YELLOW); GLUCOSE, URINE (UA) Negative (NEGATIVE); KETONES,URINE Negative (NEGATIVE); LEUKOCYTE ESTERASE ,URINE Trace (NEGATIVE); NITRATE,URINE Negative (NEGATIVE); OCCULT BLOOD,URINE Negative (NEGATIVE); PH,URINE >=9.0 (5.0-8.0); PROTEIN,URINE POS 2+ mg/dL (NEGATIVE); UROBILINOGEN,URINE 0.2 mg/dL (0.2-1.0)
[2021-06-25 18:42] LABS: BACTERIA,URINE Few /HPF (None Seen); MUCUS,URINE Few LPF (None Seen); RBC,URINE 0-1 /HPF (0-1); SQUAMOUS EPITHELIAL CELL,UR Moderate /HPF (0-2)
== END 2021-06-25 18:25 | disposition home or self-care (01) ==
LOC: EDH 16:11
DX: K57.30 Diverticulosis of large intestine without perforation or abscess without bleeding (principal); K59.00 Constipation, unspecified; Z90.49 Acquired absence of other specified parts of digestive tract; Z98.890 Other specified postprocedural states; Z79.899 Other long term (current) drug therapy
CPT/HCPCS: 74176; 81001

== ENCOUNTER → 2021-07-05 | Outpatient (CLI) | payer MEDICARE ==
[~2021-07-05] MED LIST changes: +LACT10SO5 PO
== END | disposition home or self-care (01) ==
LOC: RAH 10:00
PROVIDERS: ATTEND Internal Medicine Gastroenterology
DX: N26.1 Atrophy of kidney (terminal) (principal); R10.32 Left lower quadrant pain; Z90.49 Acquired absence of other specified parts of digestive tract
CPT/HCPCS: 74176

== ENCOUNTER 2022-02-03 10:07 | Emergency (ER) | payer OTHER, MEDICARE ==
[~2022-02-03] VITALS: Ht 170.2 cm; Wt 87.7 kg
[2022-02-03 10:36] VITALS: BP 132/82
== END 2022-02-03 12:47 | disposition home or self-care (01) ==
LOC: EDH 10:07
DX: S30.810A Abrasion of lower back and pelvis, initial encounter (principal); K59.00 Constipation, unspecified; I12.9 Hypertensive chronic kidney disease with stage 1 through stage 4 chronic kidney disease, or unspecified chronic kidney disease; N18.9 Chronic kidney disease, unspecified; Z90.49 Acquired absence of other specified parts of digestive tract; Z98.890 Other specified postprocedural states; W06.XXXA Fall from bed, initial encounter; Y93.89 Activity, other specified; Y92.89 Other specified places as the place of occurrence of the external cause; Y99.8 Other external cause status
CPT/HCPCS: 70450; 72100; 72125

== ENCOUNTER 2022-06-20 13:41 | Emergency (ER) | payer OTHER, MEDICARE ==
[~2022-06-20] VITALS: Ht 170.2 cm; Wt 81.6 kg
[~2022-06-20 13:41] MED LIST changes: -GABA300S PO; +GABA300S3 PO
[2022-06-20 14:00] LABS: HEMATOCRIT 33.8 % (36-48); MEAN CORPUSCULAR HEMOGLOBIN 31.5 pg (27.0-33.0); MEAN CORPUSCULAR VOLUME 98.5 fL (79-99); RED BLOOD CELL COUNT(AUTO) 3.43 MIL/uL (4.00-5.50); RED CELL DISTRIBUTION WIDTH 13.1 % (11.0-15.5); WHITE BLOOD COUNT (AUTO) 6.2 K/uL (4.8-10.8)
[2022-06-20 14:13] LABS: ALBUMIN 3.6 g/dL (3.5-5.0); POTASSIUM 4.2 mmol/L (3.5-5.1); TOTAL PROTEIN, SERUM 7.2 g/dL (6.0-8.3)
[2022-06-20 15:14] LABS: APPEARANCE,URINE CLEAR (CLEAR); BILIRUBIN,URINE NEGATIVE (NEGATIVE); COLOR,URINE LIGHT-YELLOW (YELLOW); GLUCOSE, URINE (UA) NEGATIVE (NEGATIVE); KETONES,URINE NEGATIVE (NEGATIVE); LEUKOCYTE ESTERASE ,URINE NEGATIVE Leu/uL (NEGATIVE); NITRATE,URINE NEGATIVE (NEGATIVE); OCCULT BLOOD,URINE NEGATIVE (NEGATIVE); PH,URINE 8.5 (5.0-8.0); PROTEIN,URINE 70 mg/dL (NEGATIVE); UROBILINOGEN,URINE 0.2 mg/dL (0.2-1.0)
[2022-06-20] MEDS ORDERED: KETOROLAC 15MG/ML VIAL (15MG/ML) ONE (15:45)
[2022-06-20] MEDS ORDERED: KETOROLAC 15MG/ML VIAL (15MG/ML) IV SCH (16:00)
[2022-06-20 17:17] VITALS: BP 106/87
== END 2022-06-20 19:01 | disposition home or self-care (01) ==
LOC: EDH 13:41
DX: M54.16 Radiculopathy, lumbar region (principal); I12.0 Hypertensive chronic kidney disease with stage 5 chronic kidney disease or end stage renal disease; N18.6 End stage renal disease; Z99.2 Dependence on renal dialysis; Z90.49 Acquired absence of other specified parts of digestive tract; Z79.899 Other long term (current) drug therapy
CPT/HCPCS: 99285; 96374; 93971; 84484; 80053; 85027; 81003; 36415; 73562; 93005; J1885

== ENCOUNTER 2022-12-21 18:34 | Emergency (ER) | payer OTHER, MEDICARE ==
[~2022-12-21] VITALS: Ht 172.7 cm; Wt 86.2 kg
[2022-12-21] MEDS ORDERED: ACETAMINOPHEN 500 MG TABLET PO ONE (21:00)
[2022-12-21 21:15] VITALS: BP 148/82; PULSE 78; RESP 16; O2SAT 97
== END 2022-12-21 21:29 | disposition home or self-care (01) ==
LOC: EDH 18:34
DX: R51.9 Headache, unspecified (principal); M79.601 Pain in right arm; Z53.21 Procedure and treatment not carried out due to patient leaving prior to being seen by health care provider
CPT/HCPCS: 73030; 73060; 73090; 99281

== ENCOUNTER 2023-02-04 06:03 | Observation (INO) | payer OTHER, MEDICARE ==
[2023-02-02 12:54] LABS: BASOPHILS # (AUTO) 0.05 K/uL (0.00-0.20); BASOPHILS % (AUTO) 0.7 % (0.0-5.0); EOSINOPHILS # (AUTO) 0.34 K/uL (0.00-0.70); EOSINOPHILS % (AUTO) 4.8 % (0.0-8.0); HEMATOCRIT 29.9 % (36-48); IMMATURE GRANULOCYTE ABSOLUTE 0.01 K/uL (0-1); LYMPHOCYTES # (AUTO) 1.8 K/uL (1.0-4.8); LYMPHOCYTES % (AUTO) 24.9 % (21.0-51.0); MEAN CORPUSCULAR HEMOGLOBIN 31.6 pg (27.0-33.0); MEAN CORPUSCULAR HGB CONC 31.4 g/dL (32.0-36.0); MEAN CORPUSCULAR VOLUME 100.7 fL (79-99); MONOCYTES # (AUTO) 0.6 K/uL (0.1-1.0); MONOCYTES % (AUTO) 8.9 % (3.0-13.0); NEUTROPHILS # (AUTO) 4.3 K/uL (1.8-7.7); NEUTROPHILS % (AUTO) 60.6 % (40.0-77.0); PLATELET COUNT (AUTO) 302 K/uL (130-400); RED BLOOD CELL COUNT(AUTO) 2.97 MIL/uL (4.00-5.50); RED CELL DISTRIBUTION WIDTH 14.3 % (11.0-15.5); WHITE BLOOD COUNT (AUTO) 7.1 K/uL (4.8-10.8)
[2023-02-02 12:56] LABS: APPEARANCE,URINE CLEAR (CLEAR); BILIRUBIN,URINE NEGATIVE (NEGATIVE); COLOR,URINE COLORLESS (YELLOW); GLUCOSE, URINE (UA) 50 mg/dL (NEGATIVE); KETONES,URINE NEGATIVE (NEGATIVE); LEUKOCYTE ESTERASE ,URINE NEGATIVE Leu/uL (NEGATIVE); NITRATE,URINE NEGATIVE (NEGATIVE); OCCULT BLOOD,URINE NEGATIVE (NEGATIVE); PROTEIN,URINE 50 mg/dL (NEGATIVE); UROBILINOGEN,URINE 0.2 mg/dL (0.2-1.0)
[2023-02-02 12:57] LABS: ADD UA MICROSCOPIC YES
[2023-02-02 13:00] LABS: BACTERIA,URINE MOD /HPF (None Seen); SQUAMOUS EPITHELIAL CELL,UR RARE /HPF (0-2); WBC,URINE 0-1 /HPF (0-1)
[2023-02-02 13:05] LABS: ALBUMIN 3.5 g/dL (3.5-5.0)
[2023-02-02 13:13] LABS: CREATININE 8.2 mg/dL (0.5-1.5)
[2023-02-02 13:15] LABS: INR < 0.93 (0.85-1.15); PROTHROMBIN TIME 10.2 SEC (9.6-11.6)
[2023-02-02 13:16] LABS: PARTIAL THROMBOPLASTIN TIME 32.3 SEC (26.3-35.5)
[2023-02-03 12:45] VITALS: BP 140/60; PULSE 55; RESP 16
[2023-02-04] VITALS (38 sets, daily range): BP systolic 108–141; BP diastolic 40–74; PULSE 61–90; RESP 14–23; O2SAT 96
[~2023-02-04] VITALS: Ht 170.2 cm; Wt 90.7 kg
[~2023-02-04 06:03] MED LIST changes: -ACET500P24 PO; -CALC667T6 PO; +FOLI0.8T22 PO; -GABA300S3 PO; -LACT10SO5 PO; +MULT-1367 PO; -ONDA4TAB4 PO; -PANT40TA PO
[2023-02-04] MEDS ORDERED: CEFAZOLIN SODIUM 2 GM VIAL ONE (06:27)
[2023-02-04] MEDS ORDERED: 0.9% NACL 500ML IV.SOLN 500 ML IV ONE (06:27)
[2023-02-04 06:42] LABS: CREATININE 5.4 mg/dL (0.5-1.5); POTASSIUM 3.6 mmol/L (3.5-5.1)
[2023-02-04] MEDS ORDERED: LIDOCAINE PF 100MG/5ML (2%) SYRINGE 5ML ONE (06:58)
[2023-02-04] MEDS ORDERED: PROPOFOL 10 MG/ML 20ML VIAL IV ONE (07:00)
[2023-02-04] MEDS ORDERED: MIDAZOLAM HCL 1 MG/ML 2ML VIAL ONE (07:00)
[2023-02-04] MEDS ORDERED: ROCURONIUM 10MG/1ML SYR 10 MG/ML ML ONE ×2 (07:00→08:41)
[2023-02-04] MEDS ORDERED: FENTANYL CITRATE PF 50 MCG/1 ML 2ML VIAL ONE (07:00)
[2023-02-04] MEDS ORDERED: ROPIVACAINE 0.5% 5MG/ML 30ML ONE (07:03)
[2023-02-04] MEDS ORDERED: TRANEXAMIC ACID 1000MG/10ML ONE (07:04)
[2023-02-04] MEDS ORDERED: PHENYLEPHRINE HCL 10 MG/ML 1ML VIAL IV ONE (07:54)
[2023-02-04] MEDS ORDERED: DEXAMETHASONE SOD PHOSPHATE 10MG/ML 1ML VIAL ONE (07:54)
[2023-02-04] MEDS ORDERED: ONDANSETRON 4MG INJ ONE ×2 (07:54→10:39)
[2023-02-04] MEDS ORDERED: NEOSTIGMINE 5MG/5ML SYR IV ONE (08:41)
[2023-02-04] MEDS ORDERED: GLYCOPYRROLATE 1 MG/5 ML SYRINGE ONE (08:41)
[2023-02-04] MEDS ORDERED: SUGAMMADEX SODIUM 200 MG/2 ML VIAL IV ONE (10:02)
[2023-02-04] MEDS ORDERED: TRAMADOL HCL 50 MG TABLET PO PRN (10:30)
[2023-02-04] MEDS ORDERED: KCL 20 MEQ ERTAB PO PRN (10:30)
[2023-02-04] MEDS ORDERED: KETOROLAC 15MG/ML VIAL (15MG/ML) IV PRN (10:30)
[2023-02-04] MEDS ORDERED: POTASSIUM CHLORIDE 20MEQ/100ML 100 ML IV PRN (10:30)
[2023-02-04] MEDS ORDERED: CYCLOBENZAPRINE HCL 10 MG TABLET PO PRN (10:30)
[2023-02-04] MEDS ORDERED: FE FUMARATE/FA/MV, MIN COMB#15 1 TAB PO PRN (10:30)
[2023-02-04] MEDS ORDERED: POTASSIUM CHLORIDE 10% ELIXIR 20 MEQ/15 ML UDCUP PO PRN (10:30)
[2023-02-04] MEDS ORDERED: KETOROLAC 15MG/ML VIAL (15MG/ML) IV SCH (10:30)
[2023-02-04] MEDS ORDERED: ONDANSETRON 4MG INJ IVP PRN (10:30)
[2023-02-04] MEDS ORDERED: MEPERIDINE-PF 25 MG/ML SYG ONE (10:39)
[2023-02-04] MEDS: HYDROCODONE/ACETAMINOPHEN 5/325 MG TAB PO PRN ×2 (15:20→21:42)
[2023-02-04] MEDS: CEFAZOLIN SODIUM 2 GM VIAL IVPB SCH ×2 (15:58→22:25)
[2023-02-04] MEDS: DOCUSATE SODIUM 100 MG CAP PO SCH (20:16)
[2023-02-04] MEDS: 0.9%NACL 1000ML 1,000 ML IV SCH ×2 (20:30→21:30)
[2023-02-05] VITALS: BP 132/80; PULSE 87; RESP 22
[2023-02-05] MEDS: HYDROCODONE/ACETAMINOPHEN 5/325 MG TAB PO PRN ×2 (03:04→18:11)
[2023-02-05 03:26] LABS: MEAN CORPUSCULAR HEMOGLOBIN 31.9 pg (27.0-33.0); MEAN CORPUSCULAR HGB CONC 32.1 g/dL (32.0-36.0); MEAN CORPUSCULAR VOLUME 99.3 fL (79-99); RED BLOOD CELL COUNT(AUTO) 2.82 MIL/uL (4.00-5.50); RED CELL DISTRIBUTION WIDTH 14.7 % (11.0-15.5)
[2023-02-05 03:35] LABS: CREATININE 7.2 mg/dL (0.5-1.5); POTASSIUM 4.3 mmol/L (3.5-5.1)
[2023-02-05 04:00] VITALS: BP 150/57; PULSE 93; RESP 20
[2023-02-05] MEDS: 0.9%NACL 1000ML 1,000 ML IV SCH (05:52)
[2023-02-05 08:00] VITALS: BP 145/54; PULSE 97; RESP 18
[2023-02-05] MEDS: ASPIRIN 325MG TAB PO SCH ×2 (08:58→19:45)
[2023-02-05] MEDS: DOCUSATE SODIUM 100 MG CAP PO SCH ×2 (08:58→19:44)
[2023-02-05] MEDS ORDERED: POLYETHYLENE GLYCOL 3350 17 GM POWD.PACK PO SCH (09:00)
[2023-02-05 12:00] VITALS: BP 140/91; PULSE 87; RESP 18
[2023-02-05 16:00] VITALS: BP 152/69; PULSE 85; RESP 18
[2023-02-05] MEDS ORDERED: HYDR-4060 PO (17:25)
[2023-02-05] MEDS ORDERED: CYCL-309 PO (17:25)
[2023-02-05] MEDS ORDERED: ASPI-1026 PO (17:25)
[2023-02-05] MEDS ORDERED: DOCU100C33 PO (17:25)
[2023-02-06 21:47] LABS: HEPATITIS B SURFACE ANTIBODY Positive (Reactive); HEPATITIS B SURFACE ANTIGEN Non-Reactive (Nonreactive)
[2023-02-06 21:48] LABS: HEPATITIS B CORE AB TOTAL Non-Reactive (Nonreactive)
[2023-02-07] MEDS ORDERED: BISACODYL 10 MG SUPP.RECT RC PRN (10:30)
== END 2023-02-05 20:30 | disposition home or self-care (01) ==
LOC: DAH 06:03 → DAHIP 06:04 → 4AH 16:40
PROVIDERS: ADMIT Student in an Organized Health Care Education/Training Program; ATTEND Student in an Organized Health Care Education/Training Program
DX: M75.101 Unspecified rotator cuff tear or rupture of right shoulder, not specified as traumatic (principal); M12.811 Other specific arthropathies, not elsewhere classified, right shoulder; D62 Acute posthemorrhagic anemia; I12.0 Hypertensive chronic kidney disease with stage 5 chronic kidney disease or end stage renal disease; N18.6 End stage renal disease; D63.1 Anemia in chronic kidney disease; E87.1 Hypo-osmolality and hyponatremia; M25.511 Pain in right shoulder; Z96.653 Presence of artificial knee joint, bilateral; Z99.2 Dependence on renal dialysis; Z79.899 Other long term (current) drug therapy; Z98.890 Other specified postprocedural states; Z90.49 Acquired absence of other specified parts of digestive tract; Z98.891 History of uterine scar from previous surgery
CPT/HCPCS: 82040; 80048 ×3; 85025; 85610; 85730; 87088; 84134; 86140; 81001; 36415 ×3; 87641; 96365; 96366; 64415; 73020; 23472; 86850; 86900; 86901; 86923; 73030; 97161; 97530 ×5; 85027; 86706; 87340; 86704; G0378 ×29; A4600; A4663; A4565; C1713; C1776; J7040; J3010; J3490 ×2; J1100; J2710; J2001; J2250; J2704; J2405 ×2; J2175; J2795; J2371; J0690 ×3; G0168; A4930; A6254; A5120; A4215; A4223; A4222; A4221

== ENCOUNTER 2023-08-15 12:06 | Emergency (ER) | payer OTHER, MEDICARE ==
[~2023-08-15] VITALS: Ht 170.2 cm; Wt 85.7 kg
[~2023-08-15 12:06] MED LIST changes: +ASPI-1026 PO; +CYCL-309 PO; +DOCU100C33 PO; +HYDR-4060 PO
[2023-08-15 12:57] LABS: BASOPHILS # (AUTO) 0.05 K/uL (0.00-0.20); BASOPHILS % (AUTO) 0.7 % (0.0-5.0); EOSINOPHILS # (AUTO) 0.22 K/uL (0.00-0.70); EOSINOPHILS % (AUTO) 3.2 % (0.0-8.0); HEMATOCRIT 34.4 % (36-48); IMMATURE GRANULOCYTE ABSOLUTE 0.02 K/uL (0-1); LYMPHOCYTES # (AUTO) 1.8 K/uL (1.0-4.8); LYMPHOCYTES % (AUTO) 25.6 % (21.0-51.0); MEAN CORPUSCULAR HEMOGLOBIN 32.5 pg (27.0-33.0); MEAN CORPUSCULAR HGB CONC 32.6 g/dL (32.0-36.0); MEAN CORPUSCULAR VOLUME 99.7 fL (79-99); MONOCYTES # (AUTO) 0.6 K/uL (0.1-1.0); MONOCYTES % (AUTO) 8.8 % (3.0-13.0); NEUTROPHILS # (AUTO) 4.3 K/uL (1.8-7.7); NEUTROPHILS % (AUTO) 61.4 % (40.0-77.0); PLATELET COUNT (AUTO) 403 K/uL (130-400); RED BLOOD CELL COUNT(AUTO) 3.45 MIL/uL (4.00-5.50); RED CELL DISTRIBUTION WIDTH 13.8 % (11.0-15.5); WHITE BLOOD COUNT (AUTO) 6.9 K/uL (4.8-10.8)
[2023-08-15 13:10] LABS: CREATININE 5.7 mg/dL (0.5-1.0); POTASSIUM 4.8 mmol/L (3.5-5.1)
[2023-08-15 13:47] LABS: INR <= 0.93 (0.85-1.15); PROTHROMBIN TIME 10.4 SEC (9.6-11.6)
[2023-08-15] MEDS ORDERED: ONDA-243 PO (14:49)
[2023-08-15 14:57] VITALS: BP 121/77; PULSE 74; RESP 16; O2SAT 97
== END 2023-08-15 14:57 | disposition home or self-care (01) ==
LOC: EDH 12:06
DX: I12.0 Hypertensive chronic kidney disease with stage 5 chronic kidney disease or end stage renal disease (principal); N18.6 End stage renal disease; Z99.2 Dependence on renal dialysis; Z79.82 Long term (current) use of aspirin; Z79.899 Other long term (current) drug therapy; Z98.890 Other specified postprocedural states
CPT/HCPCS: 36415; 51798; 80048; 84484; 85025; 85610; 93005

== ENCOUNTER → 2023-08-20 | Outpatient (CLI) | payer OTHER, MEDICARE ==
[~2023-08-20] MED LIST changes: +ONDA-243 PO
== END | disposition home or self-care (01) ==
LOC: RAH 14:12
PROVIDERS: ATTEND Student in an Organized Health Care Education/Training Program
DX: S42.191A Fracture of other part of scapula, right shoulder, initial encounter for closed fracture (principal); T84.84XA Pain due to internal orthopedic prosthetic devices, implants and grafts, initial encounter; M19.011 Primary osteoarthritis, right shoulder; X58.XXXA Exposure to other specified factors, initial encounter; Y93.89 Activity, other specified; Y92.89 Other specified places as the place of occurrence of the external cause; Y99.8 Other external cause status
CPT/HCPCS: 73200

== ENCOUNTER 2023-10-23 05:57 | Day surgery (SDC) | payer OTHER, MEDICARE ==
[2023-10-21 11:38] LABS: BASOPHILS # (AUTO) 0.05 K/uL (0.00-0.20); BASOPHILS % (AUTO) 0.9 % (0.0-5.0); EOSINOPHILS # (AUTO) 0.15 K/uL (0.00-0.70); EOSINOPHILS % (AUTO) 2.7 % (0.0-8.0); HEMATOCRIT 39.4 % (36-48); IMMATURE GRANULOCYTE ABSOLUTE 0.01 K/uL (0-1); LYMPHOCYTES # (AUTO) 1.8 K/uL (1.0-4.8); LYMPHOCYTES % (AUTO) 32.4 % (21.0-51.0); MEAN CORPUSCULAR HGB CONC 32.2 g/dL (32.0-36.0); MEAN CORPUSCULAR VOLUME 102.3 fL (79-99); MONOCYTES # (AUTO) 0.6 K/uL (0.1-1.0); NEUTROPHILS % (AUTO) 53.8 % (40.0-77.0); PLATELET COUNT (AUTO) 334 K/uL (130-400); RED BLOOD CELL COUNT(AUTO) 3.85 MIL/uL (4.00-5.50); RED CELL DISTRIBUTION WIDTH 14.2 % (11.0-15.5); WHITE BLOOD COUNT (AUTO) 5.6 K/uL (4.8-10.8)
[2023-10-21 12:00] LABS: CREATININE 4.3 mg/dL (0.5-1.0); POTASSIUM 3.8 mmol/L (3.5-5.1)
[2023-10-21 12:02] LABS: INR <= 0.93 (0.85-1.15); PROTHROMBIN TIME 9.9 SEC (9.6-11.6)
[2023-10-21 12:10] VITALS: BP 90/52; PULSE 48; RESP 18
[~2023-10-23] VITALS: Ht 170.2 cm; Wt 84.5 kg
[2023-10-23] VITALS (15 sets, daily range): BP systolic 97–129; BP diastolic 39–69; PULSE 75–87; RESP 15–17
[~2023-10-23 05:57] MED LIST changes: -ASPI-1026 PO; -CALC-1009 PO; -DOCU100C33 PO; -FOLI0.8T22 PO; -HYDR-4060 PO; -METO25TA6 PO; -ONDA-243 PO; +calcium PO
[2023-10-23] MEDS ORDERED: 0.9% NACL 500ML IV.SOLN 500 ML IV ONE (06:40)
[2023-10-23] MEDS ORDERED: ceFAZolin SODIUM 2 GM VIAL ONE (06:40)
[2023-10-23] MEDS ORDERED: SUCCINYLCHOLINE CHLORIDE 20 MG/ML 10 ML VIAL ONE (06:52)
[2023-10-23] MEDS ORDERED: LIDOCAINE PF 100MG/5ML (2%) SYRINGE 5ML ONE (06:52)
[2023-10-23] MEDS ORDERED: MIDAZOLAM HCL 1 MG/ML 2ML VIAL ONE (06:53)
[2023-10-23] MEDS ORDERED: rocuRONium bROMide 10MG/1ML 5ML VL ONE (06:53)
[2023-10-23] MEDS ORDERED: ONDANSETRON 4MG INJ ONE (06:53)
[2023-10-23] MEDS ORDERED: NEOSTIGMINE METHYLSULFATE 1MG/ML IV ONE (06:53)
[2023-10-23] MEDS ORDERED: GLYCOPYRROLATE 0.2 MG/ML 5 ML VIAL ONE (06:53)
[2023-10-23] MEDS ORDERED: proPOFol 10 MG/ML 20ML VIAL IV ONE (06:53)
[2023-10-23] MEDS ORDERED: dexaMETHasone SOD PHOSPHATE 10MG/ML 1ML VIAL ONE (06:53)
[2023-10-23] MEDS ORDERED: FENTanyl CITRate PF 50 MCG/1 ML 2ML VIAL ONE ×3 (06:54→10:43)
[2023-10-23] MEDS ORDERED: KETAMINE 50MG/ML SYRINGE 50 MG/ML DISP.SYRIN ONE (06:59)
[2023-10-23] MEDS ORDERED: ROPivacaine 0.5% 5MG/ML 30ML ONE (06:59)
[2023-10-23 07:16] LABS: POTASSIUM 5.4 mmol/L (3.5-5.1)
[2023-10-23 07:21] LABS: CREATININE 9.5 mg/dL (0.5-1.0)
[2023-10-23] MEDS ORDERED: PHENYLEPHRINE HCL 10 MG/ML 1ML VIAL IV ONE (07:45)
[2023-10-23] MEDS: ceFAZolin SODIUM 2 GM VIAL IVPB ONE (08:16)
[2023-10-23] MEDS ORDERED: SUGAMMADEX SODIUM 200 MG/2 ML VIAL IV ONE (09:02)
[2023-10-23] MEDS ORDERED: METO25TA6 PO (10:04)
[2023-10-23] MEDS ORDERED: HYDR-4060 PO (11:36)
[2023-10-23] MEDS: CALDOLOR 800MG+NS 250ML 250 ML IV ONE (12:00)
== END 2023-10-23 13:15 | disposition home or self-care (01) ==
LOC: DAH 05:57
PROVIDERS: ATTEND Student in an Organized Health Care Education/Training Program
DX: S42.121A Displaced fracture of acromial process, right shoulder, initial encounter for closed fracture (principal); R29.898 Other symptoms and signs involving the musculoskeletal system; I12.0 Hypertensive chronic kidney disease with stage 5 chronic kidney disease or end stage renal disease; N18.6 End stage renal disease; E66.01 Morbid (severe) obesity due to excess calories; Z90.49 Acquired absence of other specified parts of digestive tract; Z96.611 Presence of right artificial shoulder joint; Z98.890 Other specified postprocedural states; Z79.899 Other long term (current) drug therapy; Z68.31 Body mass index [BMI] 31.0-31.9, adult; Z99.2 Dependence on renal dialysis; X58.XXXA Exposure to other specified factors, initial encounter; Y93.89 Activity, other specified; Y92.89 Other specified places as the place of occurrence of the external cause; Y99.8 Other external cause status
CPT/HCPCS: 82040; 80048 ×2; 85025; 85610; 85730; 84134; 36415 ×2; 23585; 64415; 73030; C1713 ×4; A4663; J7030; J7040; J3010 ×3; J1100; J0330; J3490 ×3; J2001; J2250; J2704; J2405; J2710; J2795; J2371; J1741; J0690 ×2; A6206; A4649 ×3; A4215; A4657; A4213; A4222; A4221; A4216; A4223 ×2; A4600

== ENCOUNTER 2024-10-23 06:07 | Inpatient (IN) | payer MEDICARE ==
[~2024-10-23] VITALS: Ht 160 cm; Wt 77.6 kg
[2024-10-23] VITALS (24 sets, daily range): BP systolic 106–174; BP diastolic 62–82; PULSE 73–110; RESP 16–40; TEMP 98.6–100.1; O2SAT 96–100
[~2024-10-23 06:07] MED LIST changes: +HYDR-4060 PO; +METO25TA6 PO
[2024-10-23 06:23] LABS: IMMATURE GRANULOCYTE ABSOLUTE 0.03 K/uL (0-1); NUCLEATED RED BLOOD CELLS 0.0 % (0.0-0.19); PLATELET COUNT (AUTO) 226 K/uL (130-400); RED BLOOD CELL COUNT(AUTO) 4.24 MIL/uL (4.00-5.50); RED CELL DISTRIBUTION WIDTH 15.1 % (11.0-15.5); WHITE BLOOD COUNT (AUTO) 11.0 K/uL (4.8-10.8)
[2024-10-23 06:33] LABS: GLOMERULAR FILTR. RATE CALC 4.0 mL/min (>90); GLUCOSE,RANDOM 103.0 mg/dL (70-105); SODIUM SERUM 135.0 mmol/L (136-145); UREA NITROGEN, BLOOD 47.0 mg/dL (7-18)
--- NOTE | 2024-10-23 06:35 | ERN ---
ED Note History of Present Illness Stated Complaint: SOB AFTER MISSING 2 H/D APPOINTMENTS Chief Complaint: Dyspnea/Respdistress Time Seen by MD: 06:15 Dictation: This is a 59-year-old female who presented to the emergency room with complaints of respiratory distress. Patient has a end-stage renal disease and on hemodialysis her last hemodialysis was on 10/18/2024Thursday. Patient missed 2 hemodialysis schedules stating she was too weak to go. When EMS was called her initial blood pressure was 207/116 and her O2 sats were 72%. Patient received nitro 0.4 mg once, Lasix 40 mg IV and albuterol nebs were initiated. Patient was placed on CPAP and transported to the ER her blood pressure had improved significantly to 169/93. She denied any cough sputum or hemoptysis positive for PND and orthopnea no chest pain pressure. Temperature 96.3 pulse 114 respirations 35 blood pressure 169/93 with a pulse oximetry of 92% on CPAP Chronic medical problems include diabetes mellitus, hypertension, end-stage renal disease on hemodialysis-Thursday schedule-Dr. Bisi Joshi Allergies: Coded Allergies: No Known Drug Allergies (Verified Allergy, 09/16/11) Home Meds Active Scripts Hydrocodone/Acetaminophen (Hydrocodon-Acetaminophen 5-325) 5 Mg-325 Mg Tablet, 1 EACH PO Q4HPRN PRN for PAIN for 7 Days, #42 TAB 0 Refills Prov:JOSE GARCIA MD 10/23/23 Cyclobenzaprine HCl (Cyclobenzaprine HCl) 10 Mg Tablet, 5 MG PO Q8H PRN for MUSCLE SPASMS, #45 TAB 0 Refills Prov:JOSE GARCIA MD 02/05/23 Reported Medications Metoprolol Tartrate (Metoprolol Tartrate) 25 Mg Tablet, 25 MG PO AD PRN for INCREASED BLOOD PRESSURE, TAB 10/23/23 [calcium] No Conflict Check, 500 MG PO DAILY 10/21/23 Multivitamin (Multivitamin) 1 Each Tablet, 1 EACH PO DAILY, TAB 02/03/23 Past Medical History Past Medical History: Diabetes-Type II, High Cholesterol, Hypertension, Renal Disese, Renal Failure Surgical History: , LAVA Surgical History Other: BILAT KNEE REPLACEMENT, RT SHOULDER SX Social History: Negative History: Not Applicable RN Note Reviewed/Agreed w/PFSH: Yes Review of System Dictation Constitutional: Negative for fever,chills, and weight loss Eyes: Negative for injury, pain,redness, and discharge ENT: Negative for injury,pain or swelling Cardiovascular: Negative for chest pain, palpitations, and edema Respiratory: Positive for shortness of breath, denied cough, and wheezing, Abdomen/GI: Negative for abdominal pain, nausea, vomiting, diarrhea, and constipation Back: Negative for injury and pain : Negative for injury, bleeding and discharge MS/Extremity: Negative for injury and deformity Skin: Negative for rash, and discoloration Neuro: Negative for headache, weakness, numbness, tingling, and seizure Psych: Negative for suicide ideation, homicidal ideation, and hallucinations Initial Vital Sign VS Vital Signs Date Time Temp Pulse Resp B/P (MAP) Pulse Ox O2 Delivery O2 Flow Rate FiO2 10/23/24 06:09 96.3 114 35 169/93 100 CPAP 15.0 10/23/24 06:48 60 Physical Exam Dictation General: awake, alert, tachypnea on CPAP Head/Face: Normocephalic, atraumatic Eyes: PERRL, EOMI, vision at baseline ENT: oral cavity clear, TMs clear, no signs of infection Neck: Trachea midline, supple, no nuchal rigidity Cardiovascular: RRR, normal S1/S2, No MRGs, no JVD Respiratory: Moderate dyspnea with decreased breath sounds and diffuse bilateral crackles. Abdomen: Soft, non-tender, non-distended, normal bowel sounds, no guarding or rebound. Skin: Warm, dry, normal turgor, no rash MS/Extremity: Pulses equal, no cyanosis, neurovascular intact, FROM positive for LAVA Neuro: COAx4, GCS 15, strength 5/5, CN 2-12 intact, normal cerebellar exam, normal gait, Psych: Normal behavior, mood, and affect normal Extremities-trace edema without any palpable cords, Homans sign is negative Results (Laboratory/Radiology) Laboratory/Radiology Laboratory Tests Test 10/23/24 06:14 10/23/24 06:23 White Blood Count 11.0 K/uL (4.8-10.8) H Red Blood Count 4.24 MIL/uL (4.00-5.50) Hemoglobin 13.3 g/dL (12.0-16.0) Hematocrit 42.2 % (36-48) Mean Corpuscular Volume 99.5 fL (79-99) H Mean Corpuscular Hemoglobin 31.4 pg (27.0-33.0) Mean Corpuscular Hemoglobin Concent 31.5 g/dL (32.0-36.0) L Red Cell Distribution Width 15.1 % (11.0-15.5) Platelet Count 226 K/uL (130-400) Mean Platelet Volume 9.6 fL (7.5-10.5) Immature Granulocyte % (Auto) 0.3 % (0-1) Neutrophils (%) (Auto) 77.4 % (40.0-77.0) H Lymphocytes (%) (Auto) 14.6 % (21.0-51.0) L Monocytes (%) (Auto) 6.2 % (3.0-13.0) Eosinophils (%) (Auto) 1.0 % (0.0-8.0) Basophils (%) (Auto) 0.5 % (0.0-5.0) Neutrophils # (Auto) 8.5 K/uL (1.8-7.7) H Lymphocytes # (Auto) 1.6 K/uL (1.0-4.8) Monocytes # (Auto) 0.7 K/uL (0.1-1.0) Eosinophils # (Auto) 0.11 K/uL (0.00-0.70) Basophils # (Auto) 0.06 K/uL (0.00-0.20) Absolute Immature Granulocyte (auto 0.03 K/uL (0-1) Nucleated Red Blood Cells 0.0 % (0.0-0.19) Sodium Level 135 mmol/L (136-145) L Potassium Level 5.1 mmol/L (3.5-5.1) Chloride Level 101 mmol/L (101-111) Carbon Dioxide Level 17 mmol/L (21-32) L Blood Urea Nitrogen 47 mg/dL (7-18) H Creatinine 9.5 mg/dL (0.5-1.0) *H Glomerular Filtration Rate Calc 4 mL/min (>90) Random Glucose 103 mg/dL (70-105) Total Calcium 8.2 mg/dL (8.5-10.1) L Troponin I High Sensitivity 27 ng/L (4-50) Influenza Type A Antigen Negative For Type A Influenza Type B Antigen Negative For Type B SARS-CoV-2, RNA, NAAT NEGATIVE SARS CoV-2 Group A Streptococcus Rapid negative (NEGATIVE) Labs Reviewed?: Yes EKG Comment: Twelve lead EKG done on 10/23/2024 at 6:14 a.m. showed a heart rate of 105, OH interval 181, QRS 116, QT/QTC 374/496 Impression sinus tachycardia, LVH, peaked T-waves possibly suggestive of hyperkalemia. EKG rhythm strip shows a normal sinus rhythm somewhat low voltage slightly pro longed QT. Interpreted by ER MD Dr. Henao ED Course ED Course Orders Procedure Category Date Status Time Chest 1vw RAD 10/23/24 Resulted 06:13 12 Lead Ekg Tracing- EKG 10/23/24 Logged Technical 06:13 Troponin I High LAB 10/23/24 Complete Sensitivity 06:13 Cbc With Differential LAB 10/23/24 Complete 06:13 Basic Metabolic Panel LAB 10/23/24 Complete 06:13 Covid Rna Naat LAB 10/23/24 Complete 06:13 Influenza Type A & B, LAB 10/23/24 Complete Rapid 06:13 Rapid (Group A Strep) LAB 10/23/24 Complete 06:13 Bipap Settings RT 10/23/24 Transmitted 06:15 Edm Admit Bridge Order ADM 10/23/24 Verified 07:13 Vital Signs Date Time Temp Pulse Resp B/P (MAP) Pulse Ox O2 Delivery O2 Flow Rate FiO2 10/23/24 06:48 97.0 104 26 147/72 100 Bi-PAP+ 60 10/23/24 06:09 96.3 114 35 169/93 100 CPAP 15.0 We will perform diagnostic labs, advanced imaging and administer medications according to the patient's complaint. Once the results are available, will review and personally interpreted the labs to rule out any acute life- threatening emergency the trach require immediate intervention and treatment. I will then re-evaluate the patient after treatment and diagnostic exams have return to determine whether the patient requires any further testing, can safely be discharged home or need further admission to hospital for additional treatment and evaluation. Labs [place] [address] hemoglobin 13.3. BNP 7 shows a BUN and creatinine of 47 and 9.5. Potassium is 5.1 sodium is 135 bicarbonate is 17. Chest x-ray shows extensive pulmonary edema bilateral pulmonary vascular congestion with pleural effusions. I recommended admission to the hospital and patient is agreeable 7:15 a.m. patient accepted by , patient's primary care physician for admission and further management Medical Decision Making MDM Differential diagnosis: Pulmonary edema, pneumonia, new coronary event, aspiration Rationale: Tests considered and ordered secondary to shared decision making include: labs, ECG and radiology Previous outside records reviewed: Old ER visits. Risk of complication and/or morbidity or mortality of patient management: None Medications-Per medication reconciliation Need for hospitalization: Patient does meet criteria for hospitalization. Need for emergency major/minor surgery: No There are no social concerns with this patient. Prescription drug management Prescriptions will include symptomatic care Patient's prior external medical records from other ER visits were reviewed by me as indicated. Prior testing and results from previous visits were reviewed. Prior tests were taken into account with medical decision making and resource utilization, independent historian/historians were used to obtain complete medical history. I independently interpreted the test that were performed, results were reviewed by me and considered findings on radiology if ordered. Medical management and examination interpretation discussions were had by me with other qualified healthcare professionals as indicated for the patient's care. Problem List Problem List: (1) Acute respiratory failure with hypoxia (2) Acute pulmonary edema (3) End-stage renal disease on hemodialysis (4) Hypertensive emergency (5) Diabetes mellitus DX & DISP Disposition: Inpatient Decision to Admit Time: 06:35 Departure Impression: Primary Impression: Acute respiratory failure with hypoxia Additional Impressions: Acute pulmonary edema, End-stage renal disease on hemodialysis, Hypertensive emergency, Diabetes mellitus Condition: Stable Additional Instructions: Patient was informed of all the diagnostic labs and procedures conducted in the emergency room today and demonstrated understanding of the results. I personally reviewed and interpreted all the diagnostic exams performed in the ER today. The patient will be admitted to the hospital for further treatment and evaluation. Disposition-admit to facility Condition-stable/guarded Course-uncertain at this time Pain status-decreased Assessment-exam unchanged Admission Certification- I certify that the patients status is appropriate and is based on my best clinical judgment and the patient's condition as documented in the medical records Referrals: JANET CROSS MD (PCP) BERRY HENAO MD Oct 23, 2024 06:35
[2024-10-23 06:36] LABS: CREATININE 9.5 mg/dL (0.5-1.0)
--- NOTE | 2024-10-23 06:45 | HMCIMG ---
EXAM: CR Chest, 1 View. CLINICAL HISTORY: SOB COMPARISON: None provided. FINDINGS: LUNGS: There are bilateral airspace and interstitial opacities which are more pronounced in the mid to lower lung pedersen. This may be due to infection or edema. PLEURAL SPACES: No evidence of pleural effusion or pneumothorax. MEDIASTINUM: The heart is enlarged. BONES: No aggressive appearing osseous lesion seen. IMPRESSION: 1. Cardiomegaly. 2. Bilateral airspace and interstitial opacities which are more pronounced in the mid to lower lung pedersen. This may be due to infection or edema. /Barney
[2024-10-23 06:51] LABS: RAPID GROUP A STREP negative (NEGATIVE)
[2024-10-23 06:55] LABS: SARS-CoV-2, RNA, NAAT NEGATIVE SARS CoV-2 (NEGATIVE)
[2024-10-23 07:00] LABS: INFLUENZA TYPE A Negative For Type A (NEGATIVE); INFLUENZA TYPE B Negative For Type B (NEGATIVE)
--- NOTE | 2024-10-23 07:39 | NUR ---
DR BIRD MADE AWARE OF CONSULT AND HD NURSE(LINSEY) INFORMED OF STAT HEMODIALYSIS.
--- NOTE | 2024-10-23 08:00 | HP ---
HISTORY AND PHYSICAL NOTE DATE OF CONSULTATION: 10/23/24 REASON FOR CONSULTATION: dyspnea HISTORY OF PRESENT ILLNESS: This is a 59-year-old female who presented to the emergency room with complaints of respiratory distress. Patient has a end-stage renal disease and on hemodialysis her last hemodialysis was on 10/18/2024Thursday. Patient missed 2 hemodialysis schedules stating she was too weak to go. When EMS was called her initial blood pressure was 207/116 and her O2 sats were 72%. Patient received nitro 0.4 mg once, Lasix 40 mg IV and albuterol nebs were initiated. Patient was placed on CPAP and transported to the ER her blood pressure had improved significantly to 169/93. She denied any cough sputum or hemoptysis positive for PND and orthopnea no chest pain pressure. Temperature 96.3 pulse 114 respirations 35 blood pressure 169/93 with a pulse oximetry of 92% on CPAP Chronic medical problems include diabetes mellitus, hypertension, end-stage renal disease on hemodialysis-Thursday schedule-Dr. Bisi Joshi Allergies: Coded Allergies: No Known Drug Allergies (Verified Allergy, 09/16/11) Home Meds Active Scripts Hydrocodone/Acetaminophen (Hydrocodon-Acetaminophen 5-325) 5 Mg-325 Mg Tablet, 1 EACH PO Q4HPRN PRN for PAIN for 7 Days, #42 TAB 0 Refills Prov:JOSE GARCIA MD 10/23/23 Cyclobenzaprine HCl (Cyclobenzaprine HCl) 10 Mg Tablet, 5 MG PO Q8H PRN for MUSCLE SPASMS, #45 TAB 0 Refills Prov:JOSE GARCIA MD 02/05/23 Reported Medications Metoprolol Tartrate (Metoprolol Tartrate) 25 Mg Tablet, 25 MG PO AD PRN for INCREASED BLOOD PRESSURE, TAB 10/23/23 [calcium] No Conflict Check, 500 MG PO DAILY 10/21/23 Multivitamin (Multivitamin) 1 Each Tablet, 1 EACH PO DAILY, TAB 02/03/23 Past Medical History Past Medical History: Diabetes-Type II, High Cholesterol, Hypertension, Renal Disese, Renal Failure Surgical History: , LAVA Surgical History Other: BILAT KNEE REPLACEMENT, RT SHOULDER SX Social History: Negative History: Not Applicable RN Note Reviewed/Agreed w/PFSH: Yes Review of System Dictation Constitutional: Negative for fever,chills, and weight loss Eyes: Negative for injury, pain,redness, and discharge ENT: Negative for injury,pain or swelling Cardiovascular: Negative for chest pain, palpitations, and edema Respiratory: Positive for shortness of breath, denied cough, and wheezing, Abdomen/GI: Negative for abdominal pain, nausea, vomiting, diarrhea, and constipation Back: Negative for injury and pain : Negative for injury, bleeding and discharge MS/Extremity: Negative for injury and deformity Skin: Negative for rash, and discoloration Neuro: Negative for headache, weakness, numbness, tingling, and seizure Psych: Negative for suicide ideation, homicidal ideation, and hallucinations ALLERGIES: Coded Allergies: No Known Drug Allergies (Verified Allergy, 09/16/11) HOME MEDS: Active Scripts Hydrocodone/Acetaminophen (Hydrocodon-Acetaminophen 5-325) 5 Mg-325 Mg Tablet, 1 EACH PO Q4HPRN PRN for PAIN for 7 Days, #42 TAB 0 Refills Prov:JOSE GARCIA MD 10/23/23 Cyclobenzaprine HCl (Cyclobenzaprine HCl) 10 Mg Tablet, 5 MG PO Q8H PRN for MUSCLE SPASMS, #45 TAB 0 Refills Prov:JOSE GARCIA MD 02/05/23 Reported Medications Metoprolol Tartrate (Metoprolol Tartrate) 25 Mg Tablet, 25 MG PO AD PRN for INCREASED BLOOD PRESSURE, TAB 10/23/23 [calcium] No Conflict Check, 500 MG PO DAILY 10/21/23 Multivitamin (Multivitamin) 1 Each Tablet, 1 EACH PO DAILY, TAB 02/03/23 VITAL SIGNS Vital Signs Date Time Temp Pulse Resp B/P (MAP) Pulse Ox O2 Delivery O2 Flow Rate FiO2 10/23/24 07:43 97.3 101 28 144/82 99 Bi-PAP+ 60 10/23/24 06:48 97.0 104 26 147/72 100 Bi-PAP+ 60 10/23/24 06:10 110 40 60 10/23/24 06:09 96.3 114 35 169/93 100 CPAP 15.0 PHYSICAL EXAM General: awake, alert, tachypnea on CPAP Head/Face: Normocephalic, atraumatic Eyes: PERRL, EOMI, vision at baseline ENT: oral cavity clear, TMs clear, no signs of infection Neck: Trachea midline, supple, no nuchal rigidity Cardiovascular: RRR, normal S1/S2, No MRGs, no JVD Respiratory: Moderate dyspnea with decreased breath sounds and diffuse bilateral crackles. Abdomen: Soft, non-tender, non-distended, normal bowel sounds, no guarding or rebound. Skin: Warm, dry, normal turgor, no rash MS/Extremity: Pulses equal, no cyanosis, neurovascular intact, FROM positive for LAVA Neuro: COAx4, GCS 15, strength 5/5, CN 2-12 intact, normal cerebellar exam, normal gait, Psych: Normal behavior, mood, and affect normal Extremities-trace edema without any palpable cords, Homans sign is negative LABORATORY RESULTS Laboratory Tests 10/23/24 06:14: White Blood Count 11.0, Red Blood Count 4.24, Hemoglobin 13.3, Hematocrit 42.2, Mean Corpuscular Volume 99.5, Mean Corpuscular Hemoglobin 31.4, Mean Corpuscular Hemoglobin Concent 31.5, Red Cell Distribution Width 15.1, Platelet Count 226, Mean Platelet Volume 9.6, Immature Granulocyte % (Auto) 0.3, Neutrophils (%) (Auto) 77.4, Lymphocytes (%) (Auto) 14.6, Monocytes (%) (Auto) 6.2, Eosinophils (%) (Auto) 1.0, Basophils (%) (Auto) 0.5, Neutrophils # (Auto) 8.5, Lymphocytes # (Auto) 1.6, Monocytes # (Auto) 0.7, Eosinophils # (Auto) 0.11, Basophils # (Auto) 0.06, Absolute Immature Granulocyte (auto 0.03, Nucleated Red Blood Cells 0.0, Sodium Level 135, Potassium Level 5.1, Chloride Level 101, Carbon Dioxide Level 17, Blood Urea Nitrogen 47, Creatinine 9.5, Glomerular Filtration Rate Calc 4, Random Glucose 103, Total Calcium 8.2, Troponin I High Sensitivity 27 10/23/24 06:23: Influenza Type A Antigen Negative For Type A, Influenza Type B Antigen Negative For Type B, SARS-CoV-2, RNA, NAAT NEGATIVE SARS CoV-2, Group A Streptococcus Rapid negative PROBLEM LIST: (1) ESRD on dialysis ICD Codes: N18.6 - End stage renal disease; Z99.2 - Dependence on renal dialysis (2) Diabetes mellitus ICD Codes: E11.9 - Type 2 diabetes mellitus without complications (3) Acute pulmonary edema ICD Codes: J81.0 - Acute pulmonary edema (4) Acute respiratory failure with hypoxia ICD Codes: J96.01 - Acute respiratory failure with hypoxia PLAN consult nephrology for HD RESUME HOME MEDICATION ODESSA MCGOVERN MD Oct 23, 2024 08:00
--- NOTE | 2024-10-23 08:59 | NUR ---
PT DID NOT BRING HOME MEDICATIONS AND CAN'T REMEMBER THE NAMES OR DOSAGES
--- NOTE | 2024-10-23 10:03 | EKG ---
[facility] Test Date: 2024-10-23 Test Time: 06:14:30 Pat Name: ISMAEL OBRIEN Department: EDHIP Room: ED Gender: F Carrot Harvester: [id number] : 1965 Requested By: BERRY BRENNAN Order Number: [id number] Reading MD: Howie Pruitt Measurements Intervals [place] Rate: 105 P: 48 MD: 181 QRS: -15 QRSD: 116 T: 40 QT: 374 QTc: 496 Interpretive Statements Sinus tachycardia Probable left ventricular hypertrophy Compared to ECG 08/15/2023 12:26:46 Sinus rhythm no longer present Posterior QRS axis no longer present Electronically Signed On 10-23-2024 11:40:50 CDT by Howie Pruitt Please click the below link to view image of tracing.
--- NOTE | 2024-10-23 10:28 | EKG ---
[facility] Test Date: 2024-10-23 Test Time: 10:24:13 Pat Name: ISMAEL OBRINE Department: EDHIP Room: ED Gender: F Sales Marketing: [id number] : 1965 Requested By: ODESSA MCGOVERN Order Number: [id number] Reading MD: Howie Pruitt Measurements Intervals [place] Rate: 108 P: 67 [place]: 186 QRS: -9 QRSD: 114 T: 60 QT: 330 QTc: 444 Interpretive Statements Sinus tachycardia Probable left atrial enlargement Consider anteroseptal infarct Compared to ECG 10/23/2024 06:14:30 Myocardial infarct finding now present Electronically Signed On 10-23-2024 11:42:06 CDT by Howie Pruitt Please click the below link to view image of tracing.
[2024-10-23] MEDS: HYDROcodone/APAP 5/325 1 TAB TABLET PO PRN (10:48)
[2024-10-23] MEDS: 0.9%NACL 1000ML 1,000 ML IV SCH (12:30)
[2024-10-23] MEDS ORDERED: CARV3.12 PO (13:41)
[2024-10-23] MEDS ORDERED: FOLI0.8T22 PO (13:41)
[2024-10-23] MEDS ORDERED: APIX2.5T PO (13:41)
[2024-10-23] MEDS ORDERED: LOSA25TA41 PO (13:41)
[2024-10-23] MEDS ORDERED: ATOR10TA69 PO (13:41)
--- NOTE | 2024-10-23 16:42 | NUR ---
Hemodialysis complete 3.6 liters removed as per HD nurse.
--- NOTE | 2024-10-23 16:43 | NUR ---
Report given to ANIYAH Giordano. Pt. transported to Room 319 via stretcher on O2 via N/C @ 2lpm, no acute distress noted.
--- NOTE | 2024-10-23 17:15 | NUR ---
RECEIVED PATIENT FROM ER ORIENTED TO ROOM AND USE OF CALL GOULD.
--- NOTE | 2024-10-23 19:23 | NUR ---
DR MCGOVERN INFORMED OF PATIENT COMPLAINING OF PAIN TO HER LOWER BACK FROM FALL AT HOME AND LEFT 4 TH TOE BRUISED PATIENT DOES NOT REMEMBER IF SHE MENTIONED IN ER.
[2024-10-24] VITALS (22 sets, daily range): BP systolic 110–154; BP diastolic 63–94; PULSE 51–99; RESP 16–24; TEMP 97.7–99.4; O2SAT 97–99
--- NOTE | 2024-10-24 09:53 | NUR ---
DCP:HOME Pt currently lives at home with her grandkids. Pt does have a walker at home that she uses to ambulate. Pt does have a provider that goes to her home for 3hrs a day and assists her with all ADLs, home management, and meals. Pt does do dialysis at [facility] on , . PCP is Dr. Wilton Galindo and uses [facility] for any RX needs. At [place] pt will want to go home and family can assist with transportation. Addendum: 10/24/24 at 0955 by DIANA POON SS Amended: Links added.
[2024-10-24 14:16] LABS: HEPATITIS B SURFACE ANTIBODY Positive (Reactive)
[2024-10-24 14:17] LABS: HEPATITIS B CORE AB TOTAL Non-Reactive (Nonreactive)
--- NOTE | 2024-10-24 19:31 | PN ---
SUBJECTIVE: The patient is feeling significantly improved. She had a hemodialysis session yesterday, scheduled to have one more today. She is still with oxygen. OBJECTIVE: GENERAL: She is currently awake, alert, and oriented in person, time, and place, not in distress. VITAL SIGNS: In the chart. HEENT: Normocephalic, atraumatic. LUNGS: Clear to auscultation. No wheezes, rhonchi, no withdrawals. HEART: S1 and S2 are distant. ABDOMEN: Soft, nontender. No masses. EXTREMITIES: No clubbing or cyanosis. No edema. LABORATORY DATA: WBC count yesterday 11, hemoglobin 13.3, platelets 226, sodium 135, potassium 5.1, BUN 47, creatinine 9.5. ASSESSMENT AND PLAN: * Respiratory failure with hypoxemia, improving. Continue to titrate oxygen to off. * Volume overload secondary to missing hemodialysis sessions. Continue with hemodialysis today. Plan to discharge in a.m. if stable. * Hypertension, controlled. Continue current medications. * Type 2 diabetes, controlled. Continue current treatment. * Follow up in a.m. with results of tests. DOS;10/24/2024 TID: [id number] RECEIPT: [id number] [facility]indy
--- NOTE | 2024-10-24 20:23 | CONS ---
NEPHROLOGY CONSULTATION NOTE Date of Service: Oct 24, 2024 Reason for Consultation: [ ESRD on HD ] Requesting Physician: [ Dr. Lam ] HISTORY OF PRESENT ILLNESS: [ Patient is a 59-year-old female with a past medical history of end-stage renal disease on hemodialysis-TTS at [facility] in [place]; hypertension, hyperlipidemia, diabetes mellitus type 2. She presented to the emergency dep artment yesterday via EMS with shortness of breath and distress. She reports missing her last 2 hemodialysis treatments, she reports she was too weak to go. In the emergency department she had negative covid, flu and strep swabs. EKG with sinus tachycardia, chest x-ray with cardiomegaly and bilateral opacities to mid to lower lung spaces, labs were reviewed. She was admitted with a diagnosis of CHF exacerbation, dyspnea, and fluid overload. Nephrology was consulted for management of hemodialysis as she is known to our service. She did receive a hemodialysis treatment yesterday removing 3 L which she tolerated and we will plan for her to receive an additional treatment today. This morning she shows clinical improvement improved respiratory status she remains on supplemental oxygen and she was compliant with CPAP overnight. ] REVIEW OF SYSTEMS CONSTITUTIONAL: Denies fever, chills, or fatigue. HEAD/FACE: No signs of trauma. EENT: Denies eye pain, blurred vision, double vision, or light sensitivity. RESPIRATORY: Denies shortness of breath, cough, wheezing CARDIOVASCULAR: Denies chest pain, palpitation, syncope GASTROINTESTINAL/ABDOMINAL: Denies abdominal pain, constipation, diarrhea, nausea or vomiting GENITOURINARY: Denies dysuria or hematuria. MUSCULOSKELETAL: Denies joint pain, tenderness, or trauma. INTEGUMENTARY: Denies rash or itchiness NEUROLOGICAL/PSYCH: Denies anxiety, depression, heat or cold intolerance. PAST MEDICAL HISTORY: [ End-stage renal disease on hemodialysis TTS, hypertension, diabetes mellitus type 2, hyperlipidemia.] PAST SURGICAL HISTORY: [ , LAVA, right shoulder surgery, bilateral knee replacement, gastric bypass, cholecystectomy. ] PAST SOCIAL HISTORY: [ Denies smoking, drugs and alcohol.] FAMILY HISTORY: [ Noncontributory. ] Coded Allergies: No Known Drug Allergies (Verified Allergy, 09/16/11) PHYSICAL EXAM GENERAL: SHE IS AWAKE ALERT ON SUPPLEMENTAL OXYGEN EYES: Anicteric. Pupils equal and reactive. HENT: No oral thrush seen, moist Oral mucosa NECK: Supple, no JVD or thyromegaly. LUNGS: Good air movement, rales bilateral lower lobes. CARDIOVASCULAR: S1, S2 regular. No murmur heard. ABDOMEN: Soft, non tender, bowel sounds present, no organomegaly CENTRAL NERVOUS SYSTEM: Awake, alert, oriented x 3. No focal deficits. SKIN: No rashes, no swelling. LYMPHATICS: No peripheral lymphadenopathy MUSCULOSKELETAL: No joint swelling, erythema or tenderness. EXTREMITIES: No cyanosis or clubbing or edema, LAVA BACK: No deformity, no pressure ulcer. GENITOURINARY: On hemodialysis Vital Sign (Last 24 Hours) 10/24/24 10/24/24 18:43 19:10 Temp 98.1 Pulse 79 Resp 18 B/P (MAP) 147/77 Pulse Ox 97 O2 Delivery Nasal Cannula O2 Flow Rate 2.0 FiO2 28 Intake & Output (last 24hrs) 10/23/24 10/23/24 10/24/24 15:00 23:00 07:00 Output Total 3600 ml 100 ml Balance -3600 ml -100 ml LABS: Laboratory: Test 10/23/24 13:20 10/23/24 06:23 10/23/24 06:14 Range/Units Hepatitis B Surface Antigen. Non-Reactive Nonreactive Hepatitis B Surface Antibody. Positive Reactive Hepatitis B Core Total Antibody. Non-Reactive Nonreactive Hepatitis C Antibody Non-Reactive Nonreactive Influenza Type A Antigen Negative For Type A NEGATIVE Influenza Type B Antigen Negative For Type B NEGATIVE SARS-CoV-2, RNA, NAAT NEGATIVE SARS CoV-2 NEGATIVE Group A Streptococcus Rapid negative NEGATIVE White Blood Count 11.0 H 4.8-10.8 K/uL Red Blood Count 4.24 4.00-5.50 MIL/uL Hemoglobin 13.3 12.0-16.0 g/dL Hematocrit 42.2 36-48 % Mean Corpuscular Volume 99.5 H 79-99 fL Mean Corpuscular Hemoglobin 31.4 27.0-33.0 pg Mean Corpuscular Hemoglobin Concent 31.5 L 32.0-36.0 g/dL Red Cell Distribution Width 15.1 11.0-15.5 % Platelet Count 226 130-400 K/uL Mean Platelet Volume 9.6 7.5-10.5 fL Immature Granulocyte % (Auto) 0.3 0-1 % Neutrophils (%) (Auto) 77.4 H 40.0-77.0 % Lymphocytes (%) (Auto) 14.6 L 21.0-51.0 % Monocytes (%) (Auto) 6.2 3.0-13.0 % Eosinophils (%) (Auto) 1.0 0.0-8.0 % Basophils (%) (Auto) 0.5 0.0-5.0 % Neutrophils # (Auto) 8.5 H 1.8-7.7 K/uL Lymphocytes # (Auto) 1.6 1.0-4.8 K/uL Monocytes # (Auto) 0.7 0.1-1.0 K/uL Eosinophils # (Auto) 0.11 0.00-0.70 K/uL Basophils # (Auto) 0.06 0.00-0.20 K/uL Absolute Immature Granulocyte (auto 0.03 0-1 K/uL Nucleated Red Blood Cells 0.0 0.0-0.19 % Sodium Level 135 L 136-145 mmol/L Potassium Level 5.1 3.5-5.1 mmol/L Chloride Level 101 101-111 mmol/L Carbon Dioxide Level 17 L 21-32 mmol/L Blood Urea Nitrogen 47 H 7-18 mg/dL Creatinine 9.5 *H 0.5-1.0 mg/dL Glomerular Filtration Rate Calc 4 >90 mL/min Random Glucose 103 70-105 mg/dL Total Calcium 8.2 L 8.5-10.1 mg/dL Troponin I High Sensitivity 27 4-50 ng/L DIAGNOSTICS / RADIOLOGY: [ ] ASSESSMENT: *end-stage renal disease-on hemodialysis * fluid overload * acute pulmonary edema * acute respiratory failure with hypoxia * diabetes mellitus type 2 * hypotension * medical noncompliance PLAN: *end-stage renal disease-on hemodialysis- initiate hemodialysis 300 blood flow rate, 600 dialysate rate, UF 2-3 L as tolerated. 2K bath and 2.5 Ca bath pending lab redraw. Fluid restriction of 1.2 L, renal dialysis diet. * fluid overload- she does show clinical improvement; proceed with UF. * acute pulmonary edema- clinically improved; on supplemental oxygen; proceed with UF. * acute respiratory failure with hypoxia- she is on supplemental oxygen, tolerating CPAP, proceed with UF. * diabetes mellitus type 2-continue with current regimen, monitor glucometer hours. * hypotension- continuing with current regimen, monitor routine vital signs. * medical noncompliance- reiterated the importance of hemodialysis sessions. This visit was rendered and documented by Rocky Hampton, MSN, LAUNDRY PRICING CLERK, ICT BUSINESS DEVELOPMENT MANAGER-C and completed in collaboration with supervising physician Jayleen Herrera MD. ROCKY HAMPTON APRN Oct 24, 2024 20:23
[2024-10-24] MEDS ORDERED: DIPH25CA85 PO (20:58)
[2024-10-24] MEDS ORDERED: CALC750T4 PO (20:58)
[2024-10-24] MEDS ORDERED: CYCLOBENZAPRINE HCL 10 MG TABLET PO PRN (22:00)
[2024-10-24] MEDS ORDERED: CALCIUM CARBONATE PO PRN (22:00)
[2024-10-24] MEDS: CALCIUM CARB 500MG PO PRN (23:48)
[2024-10-25] VITALS (22 sets, daily range): BP systolic 116–161; BP diastolic 45–76; PULSE 60–87; RESP 16–20; TEMP 97.7–98.5; O2SAT 98–99
--- NOTE | 2024-10-25 05:40 | HMCIMG ---
EXAM: CR Thoracic Spine, 3 views. CLINICAL HISTORY: Status post fall at home. COMPARISON: None provided. FINDINGS: Thoracic alignment is within normal limits. Mild degenerative changes in the mid and lower thoracic spine with reduction in disc space and multilevel degenerative facet arthropathy. Mild anterior wedging of the L1 and L2 vertebrae. Visualized thoracic vertebrae are normal in height. Normal vertebral body heights. Mild degenerative changes in the mid and lower thoracic spine. Soft tissues are within normal limits. Surgical clip in the right upper quadrant, probably post-cholecystectomy surgical clips. Posterior humeral arthroplasty status is appreciated on the lateral view; however, difficult to localize on the single lateral view. It is not included in the AP projection. Humerii are not included in the AP projection. IMPRESSION: Mild anterior wedging of the L1 and L2 vertebrae -likely chronic in nature. Visualized thoracic vertebrae are normal in height. Mild degenerative changes in the mid and lower thoracic spine with reduction in disc space and multilevel degenerative facet arthropathy. /[place]
--- NOTE | 2024-10-25 05:43 | HMCIMG ---
EXAM: CR Lumbar Spine, 3 views. CLINICAL HISTORY: Status post fall at home. COMPARISON: Prior lumbar spine radiograph dated 03 February 2022 FINDINGS: Mild osteopenia. Mild chronic compression fracture of the L2 vertebra. The rest of the lumbar vertebrae are normal in height. Degenerative lateral syndesmophyte from L1-L2, through L5-S1 level. Multilevel degenerative facet arthropathy. Moderate to severe narrowing of the neural foramina at the L5-S1 level. Mild degenerative reduction in disc space at the L4-L5 and L5-S1 levels. Lumbar alignment is within normal limits. Probable occult spina bifida of the S1 vertebra. Normal vertebral body heights. Soft tissues are within normal limits. Moderate to large amount of fecal residue in the large bowel loops. Changes of constipation. Surgical clips in the right upper quadrant. Probable post-cholecystectomy surgical clips. IMPRESSION: Mild osteopenia. Mild chronic compression fracture of the L2 vertebra. The rest of the lumbar vertebrae are normal in height. Degenerative lateral syndesmophyte from L1-L2, through L5-S1 level. Multilevel degenerative facet arthropathy. Moderate to severe narrowing of the neural foramina at the L5-S1 level. Mild degenerative reduction in disc space at the L4-L5 and L5-S1 levels. /[place]
--- NOTE | 2024-10-25 05:43 | HMCIMG ---
EXAM: CR Right Foot, 3 views. CLINICAL HISTORY: Status post fall at home. COMPARISON: None provided. FINDINGS: Mild osteopenia. Mild degenerative changes in the tibiotalar, talofibular, intertarsal, tarsometatarsal, first metatarsophalangeal, and interphalangeal joints. No acute fracture or aggressively appearing osseous lesion. Small plantar calcaneal spur. The soft tissues are unremarkable. Atherosclerotic vascular disease. IMPRESSION: No acute osseous abnormality. Mild osteopenia. Mild degenerative changes in the tibiotalar, talofibular, intertarsal, tarsometatarsal, first metatarsophalangeal, and interphalangeal joints. /[place]
[2024-10-25] MEDS: Vitamin B Complex/Vit C/Folic Acid PO SCH (09:05)
--- NOTE | 2024-10-25 19:45 | PN ---
NEPHROLOGY PROGRESS NOTE Date of Service: Oct 25, 2024 Time of Service: 0645 SUBJECTIVE: [ Patient was seen and evaluated at bedside this morning. No concerns per nursing. Clinically improved from volume standpoint after extra treatment of hemodialysis. She is clear from nephrology standpoint for discharge once she has completed routine dialysis treatment today.] REVIEW OF SYSTEMS CONSTITUTIONAL: Denies fever, chills, or fatigue. HEAD/FACE: No signs of trauma. EENT: Denies eye pain, blurred vision, double vision, or light sensitivity. RESPIRATORY: Denies shortness of breath, cough, wheezing CARDIOVASCULAR: Denies chest pain, palpitation, syncope GASTROINTESTINAL/ABDOMINAL: Denies abdominal pain, constipation, diarrhea, nausea or vomiting GENITOURINARY: Denies dysuria or hematuria. MUSCULOSKELETAL: Denies joint pain, tenderness, or trauma. INTEGUMENTARY: Denies rash or itchiness NEUROLOGICAL/PSYCH: Denies anxiety, depression, heat or cold intolerance. PHYSICAL EXAM GENERAL: SHE IS AWAKE ALERT ON SUPPLEMENTAL OXYGEN EYES: Anicteric. Pupils equal and reactive. HENT: No oral thrush seen, moist Oral mucosa NECK: Supple, no JVD or thyromegaly. LUNGS: Good air movement, . CARDIOVASCULAR: S1, S2 regular. No murmur heard. ABDOMEN: Soft, non tender, bowel sounds present, no organomegaly CENTRAL NERVOUS SYSTEM: Awake, alert, oriented x 3. No focal deficits. SKIN: No rashes, no swelling. LYMPHATICS: No peripheral lymphadenopathy MUSCULOSKELETAL: No joint swelling, erythema or tenderness. EXTREMITIES: No cyanosis or clubbing or edema, LAVA BACK: No deformity, no pressure ulcer. GENITOURINARY: On hemodialysis Vital Signs (last 8hr) Date Time Temp Pulse Resp B/P (MAP) Pulse Ox O2 Delivery O2 Flow Rate FiO2 10/25/24 15:54 98.1 80 18 116/60 97 Room Air 10/25/24 13:45 97.7 60 16 124/53 Room Air 10/25/24 13:30 62 16 120/68 Room Air 10/25/24 13:15 60 16 129/57 Room Air 10/25/24 13:00 65 16 134/57 Room Air 10/25/24 12:45 79 16 153/64 Room Air 10/25/24 12:30 83 16 161/73 Room Air 10/25/24 12:15 80 16 145/76 Room Air 10/25/24 12:00 75 16 136/71 Room Air 10/25/24 11:49 87 18 N/A Room Air 21 10/25/24 11:45 75 16 147/69 Room Air LABS: DIAGNOSTICS / RADIOLOGY: [ ] ASSESSMENT: *end-stage renal disease-on hemodialysis * fluid overload * acute pulmonary edema * acute respiratory failure with hypoxia * diabetes mellitus type 2 * hypotension * medical noncompliance PLAN: *end-stage renal disease-on hemodialysis- routine hemodialysis treatment; UF 2-3 L as tolerated. Fluid restriction of 1.2 L, renal dialysis diet. She is clear for discharge from nephrology standpoint once completed treatment. * fluid overload- she does show clinical improvement; proceed with UF. * acute pulmonary edema- clinically improved; on supplemental oxygen; proceed with UF. * acute respiratory failure with hypoxia- she is on supplemental oxygen, tolerating CPAP, proceed with UF. * diabetes mellitus type 2-continue with current regimen, monitor glucometer hours. * hypotension- continuing with current regimen, monitor routine vital signs. * medical noncompliance- reiterated the importance of hemodialysis sessions. This visit was rendered and documented by Rocky Hampton, MSN, KELP GATHERER, FISHING LINE WINDING MACHINE OPERATOR-C and completed in collaboration with supervising physician Jayleen Herrera MD. ROCKY HAMPTON APRN Oct 25, 2024 19:45
== END 2024-10-25 17:52 | disposition home or self-care (01) | DRG 640 ==
LOC: EDH 06:07 → EDHIP 07:17 → 3CH 17:10
PROVIDERS: ADMIT Internal Medicine; ATTEND Internal Medicine
PROC: 5A1D70Z Performance of Urinary Filtration, Intermittent, Less than 6 Hours Per Day (ICD-10-PCS; principal; 2024-10-23)
PROC: 5A1D70Z Performance of Urinary Filtration, Intermittent, Less than 6 Hours Per Day (ICD-10-PCS; 2024-10-24)
PROC: 5A1D70Z Performance of Urinary Filtration, Intermittent, Less than 6 Hours Per Day (ICD-10-PCS; 2024-10-25)
DX: E87.70 Fluid overload, unspecified (principal); J81.0 Acute pulmonary edema; N18.6 End stage renal disease; J96.01 Acute respiratory failure with hypoxia; I16.1 Hypertensive emergency; I13.2 Hypertensive heart and chronic kidney disease with heart failure and with stage 5 chronic kidney disease, or end stage renal disease; Z91.158 Patient's noncompliance with renal dialysis for other reason; Z96.653 Presence of artificial knee joint, bilateral; Z20.822 Contact with and (suspected) exposure to COVID-19; E78.00 Pure hypercholesterolemia, unspecified; E11.22 Type 2 diabetes mellitus with diabetic chronic kidney disease; I95.9 Hypotension, unspecified; I50.9 Heart failure, unspecified; Z98.84 Bariatric surgery status; Z99.2 Dependence on renal dialysis; Z91.148 Patient's other noncompliance with medication regimen for other reason
CPT/HCPCS: 36415; 71045; 72070; 72100; 73620; 80048; 84484; 85025; 86704; 86706; 86803; 87340; 87635; 87804; 87880; 90935; 93005; 94660; 99285; G0378; Q0163

== ENCOUNTER 2025-01-02 09:00 | Observation (INO) | payer MEDICARE ==
[~2025-01-02] VITALS: Ht 172.7 cm; Wt 77.5 kg
[2025-01-02] VITALS (22 sets, daily range): BP systolic 123–172; BP diastolic 66–84; PULSE 69–110; RESP 16–38; TEMP 97.5–100.4; O2SAT 100
[~2025-01-02 09:00] MED LIST changes: +APIX2.5T PO; +ATOR10TA69 PO; +CALC750T4 PO; +CARV3.12 PO; +DIPH25CA85 PO; +FOLI0.8T22 PO; +LOSA25TA41 PO; -METO25TA6 PO; -MULT-1367 PO; -calcium PO
[2025-01-02 09:25] LABS: IMMATURE GRANULOCYTE ABSOLUTE 0.03 K/uL (0-1); NUCLEATED RED BLOOD CELLS 0.0 % (0.0-0.19); PLATELET COUNT (AUTO) 314 K/uL (130-400); RED BLOOD CELL COUNT(AUTO) 3.63 MIL/uL (4.00-5.50); RED CELL DISTRIBUTION WIDTH 14.4 % (11.0-15.5); WHITE BLOOD COUNT (AUTO) 10.9 K/uL (4.8-10.8)
[2025-01-02 09:38] LABS: ASPARTATE AMINOTRANSFERASE 32.0 U/L (10-37); CREATINE KINASE, TOTAL 87.0 U/L (21-232); GLOMERULAR FILTR. RATE CALC 5.0 mL/min (>90); GLUCOSE,RANDOM 72.0 mg/dL (70-105); SODIUM SERUM 130.0 mmol/L (136-145); TOTAL PROTEIN, SERUM 7.9 g/dL (6.0-8.3); UREA NITROGEN, BLOOD 47.0 mg/dL (7-18)
[2025-01-02 09:41] LABS: CREATININE 9.0 mg/dL (0.5-1.0)
--- NOTE | 2025-01-02 09:45 | EKG ---
[facility] Test Date: 2025-01-02 Test Time: 09:09:09 Pat Name: ISMAEL OBRIEN Department: [facility] Room: ED Gender: F Application Support Engineer: [id number] : 1965 Requested By: KING PAL[place] Order Number: [id number] Reading MD: Piyush Hood Measurements Intervals [place] Rate: 107 P: 60 SD: 177 QRS: -6 QRSD: 110 T: 42 QT: 361 QTc: 481 Interpretive Statements Sinus tachycardia Probable left atrial enlargement Anteroseptal infarct, old Compared to ECG 10/23/2024 10:24:13 No significant changes Electronically Signed On 01-02-2025 18:16:51 ORTHOPEDIC PHYSICIAN ASSISTANT by Piyush Hood Please click the below link to view image of tracing.
--- NOTE | 2025-01-02 10:28 | HMCIMG ---
EXAM: CR Chest, 2 View. CLINICAL HISTORY: fever COMPARISON: Radiograph dated October 23, 2024 FINDINGS: There is diffuse airspace disease bilaterally likely reflecting pulmonary edema. Suspected small effusions bilaterally. No pneumothorax. Mild to moderate cardiomegaly and pulmonary vascular congestion. IMPRESSION: 1. Bilateral pulmonary edema with suspected small bilateral pleural effusions 2. Mild to moderate cardiomegaly with pulmonary vascular congestion /[place]
[2025-01-02 10:42] LABS: ABG BASE EXCESS -6.8 mmol/L (-2.0-3.0); ABG HCO3 17.9 mmol/L (21.0-28.0); ABG OXYGEN SATURATION 95.3 % (94.0-98.0); ABG PCO2 34 mmHg (32-45); ABG PH 7.342 (7.350-7.450); PO2, ARTERIAL BG 80.0 mmHg (83.0-108.0); TEMPERATURE, CELSIUS BG 37.0 CELSIUS (35.5-37.0); VENT MODE, BG NRM (ROOM AIR)
[2025-01-02] MEDS: SODIUM BICARB 50MEQ 50ML VIAL IV STA (11:45)
[2025-01-02] MEDS: CALCIUM GLUC 1GM/10ML VIAL IVPB STA (11:55)
[2025-01-02] MEDS: 0.9%NACL 1000ML 1,000 ML IV SCH (12:00)
[2025-01-02] MEDS: CALCIUM GLUC 1GM 1 GM in 0.9%NACL 100ML 100 ML IV ONE (12:24)
--- NOTE | 2025-01-02 13:12 | NUR ---
RECIEVED REPORT FROM LUDWIN LI AND ASSUMED PATIENT CARE.
[2025-01-02 13:16] LABS: COVID19 (SARS ANTIGEN RAPID) PRESUMPTIVE NEGATIVE (NEGATIVE); INFLUENZA TYPE A Negative For Type A (NEGATIVE); INFLUENZA TYPE B Negative For Type B (NEGATIVE)
--- NOTE | 2025-01-02 13:20 | ERN ---
ED Note History of Present Illness Stated Complaint: FLUID OVERLOAD Chief Complaint: Shortness of Breath Time Seen by MD: 09:01 Dictation: 59-year-old female presenting to the emergency department history of end-stage renal disease missed dialysis for not feeling well on Thursday presented today to the emergency department with trouble breathing, by EMS. no Fever no cough Allergies: Coded Allergies: No Known Drug Allergies (Verified Allergy, 09/16/11) Home Meds Active Scripts Hydrocodone/Acetaminophen (Hydrocodon-Acetaminophen 5-325) 5 Mg-325 Mg Tablet, 1 EACH PO Q4HPRN PRN for PAIN for 7 Days, #42 TAB 0 Refills Prov:JOSE GARCIA MD 10/23/23 Cyclobenzaprine HCl (Cyclobenzaprine HCl) 10 Mg Tablet, 5 MG PO Q8H PRN for MUSCLE SPASMS, #45 TAB 0 Refills Prov:JSOE GARCIA MD 02/05/23 Reported Medications Calcium Carbonate (Tums) 300 Mg Calcium (750 Mg) Tab.chew, 1 TAB PO BID PRN for INDIGESTION for 30 Days, #60 TAB 0 Refills 10/24/24 Diphenhydramine HCl (Benadryl) 25 Mg Capsule, 1 CAP PO HS PRN for SLEEP for 30 Days, #30 CAP 0 Refills 10/24/24 Atorvastatin Calcium (Atorvastatin Calcium) 10 Mg Tablet, 1 TAB PO DAILY for 30 Days, #30 TAB 0 Refills 10/23/24 Folic Acid/Vitamin B Comp W-C (Kerrie-Werner Tablet) 0.8 Mg Tablet, 1 TAB PO DAILY for 30 Days, #30 TAB 0 Refills 10/23/24 Carvedilol (Carvedilol) 3.125 Mg Tablet, 1 TAB PO BID for 30 Days, #60 TAB 0 Refills 10/23/24 Apixaban (Eliquis) 2.5 Mg Tablet, 1 TAB PO BID for 30 Days, #60 TAB 0 Refills 10/23/24 Losartan Potassium (Losartan Potassium) 25 Mg Tablet, 1 TAB PO DAILY for 30 Days, #30 TAB 0 Refills 10/23/24 Past Medical History Past Medical History: Renal Failure Surgical History: Unknown Surgical History Other: BILAT KNEE REPLACEMENT, RT SHOULDER SX Social History: Negative History: Not Applicable Review of System Dictation Constitutional: Negative for fever,chills, and weight loss Eyes: Negative for injury, pain,redness, and discharge ENT: Negative for injury,pain or swelling Cardiovascular: Negative for chest pain, palpitations, and edema Respiratory: Per HPI Abdomen/GI: Negative for abdominal pain, nausea, vomiting, diarrhea, and constipation Back: Negative for injury and pain : Negative for injury, bleeding and discharge MS/Extremity: Negative for injury and deformity Skin: Negative for rash, and discoloration Neuro: Per HPI Initial Vital Sign VS Vital Signs Date Time Temp Pulse Resp B/P (MAP) Pulse Ox O2 Delivery O2 Flow Rate FiO2 01/02/25 09:02 98.8 103 20 180/91 96 Nonrebreathing Mask 8.0 01/02/25 10:52 100 Physical Exam Dictation General: awake, alert, patient appears ill Head/Face: Normocephalic, atraumatic Eyes: PERRL, EOMI, vision at baseline ENT: oral cavity clear, TMs clear, no signs of infection Neck: Trachea midline, supple, no nuchal rigidity Cardiovascular: Tachycardic normal S1/S2, No MRGs, no JVD Respiratory: Diminished bilateral breath sounds with tachypnea Abdomen: Soft, non-tender, non-distended, normal bowel sounds, no guarding or rebound. Skin: Warm, dry, normal turgor, no rash MS/Extremity: Pulses equal, no cyanosis, neurovascular intact, FROM Neuro: COAx4, GCS 15, strength 5/5, CN 2-12 intact, normal cerebellar exam, normal gait, Psych: Normal behavior, mood, and affect normal Results (Laboratory/Radiology) Laboratory/Radiology Laboratory Tests Test 01/02/25 09:17 01/02/25 10:40 01/02/25 12:20 White Blood Count 10.9 K/uL (4.8-10.8) H Red Blood Count 3.63 MIL/uL (4.00-5.50) L Hemoglobin 11.4 g/dL (12.0-16.0) L Hematocrit 35.4 % (36-48) L Mean Corpuscular Volume 97.5 fL (79-99) Mean Corpuscular Hemoglobin 31.4 pg (27.0-33.0) Mean Corpuscular Hemoglobin Concent 32.2 g/dL (32.0-36.0) Red Cell Distribution Width 14.4 % (11.0-15.5) Platelet Count 314 K/uL (130-400) Mean Platelet Volume 9.3 fL (7.5-10.5) Immature Granulocyte % (Auto) 0.3 % (0-1) Neutrophils (%) (Auto) 83.0 % (40.0-77.0) H Lymphocytes (%) (Auto) 8.6 % (21.0-51.0) L Monocytes (%) (Auto) 6.6 % (3.0-13.0) Eosinophils (%) (Auto) 0.8 % (0.0-8.0) Basophils (%) (Auto) 0.7 % (0.0-5.0) Neutrophils # (Auto) 9.0 K/uL (1.8-7.7) H Lymphocytes # (Auto) 0.9 K/uL (1.0-4.8) L Monocytes # (Auto) 0.7 K/uL (0.1-1.0) Eosinophils # (Auto) 0.09 K/uL (0.00-0.70) Basophils # (Auto) 0.08 K/uL (0.00-0.20) Absolute Immature Granulocyte (auto 0.03 K/uL (0-1) Nucleated Red Blood Cells 0.0 % (0.0-0.19) White Cell Morphology Comment See comments Sodium Level 130 mmol/L (136-145) L Potassium Level 6.0 mmol/L (3.5-5.1) *H Chloride Level 93 mmol/L (101-111) L Carbon Dioxide Level 22 mmol/L (21-32) Blood Urea Nitrogen 47 mg/dL (7-18) H Creatinine 9.0 mg/dL (0.5-1.0) *H Glomerular Filtration Rate Calc 5 mL/min (>90) Random Glucose 72 mg/dL (70-105) Lactic Acid Level 1.3 mmol/L (0.8-2.5) Total Calcium 8.6 mg/dL (8.5-10.1) Total Bilirubin 0.6 mg/dL (0.2-1.0) Direct Bilirubin 0.2 mg/dL (0.0-0.3) Aspartate Amino Transf (AST/SGOT) 32 U/L (10-37) Alanine Aminotransferase (ALT/SGPT) 21 U/L (12-78) Alkaline Phosphatase 118 U/L (50-136) Total Creatine Kinase 87 U/L (21-232) Troponin I High Sensitivity 46 ng/L (4-50) B-Type Natriuretic Peptide 2590 pg/mL (0-100) H Total Protein 7.9 g/dL (6.0-8.3) Albumin 3.5 g/dL (3.5-5.0) Blood Gas Specimen Type Arterial Arterial Blood pH 7.342 (7.350-7.450) Arterial Blood Partial Pressure CO2 34 mmHg (32-45) Arterial Blood Partial Pressure O2 80.0 mmHg (83.0-108.0) L Arterial Blood HCO3 17.9 mmol/L (21.0-28.0) L Arterial Blood Oxygen Saturation 95.3 % (94.0-98.0) Arterial Blood Base Excess -6.8 mmol/L (-2.0-3.0) L Blood Gas Temperature 37.0 CELSIUS (35.5-37.0) Blood Gas Flow-by 15.00 L/min (0.00-15.00) Blood Gas Vent Mode NRM (ROOM AIR) FiO2 100.0 % Blood Gas Specimen Comment RR, Influenza Type A Antigen Negative For Type A Influenza Type B Antigen Negative For Type B SARS-CoV-2 Antigen (Rapid) PRESUMPTIVE NEGATIVE Labs Reviewed?: Yes EKG Comment: Heart rate 107, sinus tachycardia normal intervals no STEMI ED Course ED Course Orders Procedure Category Date Status Time 12 Lead Ekg Tracing- EKG 01/02/25 Complete Technical 09:02 Basic Metabolic Panel LAB 01/02/25 Complete 09:02 Blood Cult NAVIN 01/02/25 In Process 09:02 Cbc With Differential LAB 01/02/25 Complete 09:02 Hepatic Function Panel LAB 01/02/25 Complete 09:02 Creatine Kinase, Total LAB 01/02/25 Complete 09:02 Lactic Acid LAB 01/02/25 Complete 09:02 Troponin I High LAB 01/02/25 Complete Sensitivity 09:02 Chest 1vw RAD 01/02/25 Resulted 09:02 Covid19 (Sars Antigen LAB 01/02/25 Complete Rapid) 09:02 B-Type Natriuretic LAB 01/02/25 Complete Peptide 09:02 Influenza Type A & B, LAB 01/02/25 Complete Rapid 09:02 Arterial Blood Gas RT 01/02/25 Transmitted 10:08 Bipap Settings RT 01/02/25 Transmitted 10:08 Calcium Gluc 1gm PHA 01/02/25 Complete (Calcium Gluc 1gm 10:08 Sodium Bicarb 50meq PHA 01/02/25 Complete 50ml Vial (Sodium Bi 10:08 Arterial Blood Gas LAB 01/02/25 Complete 10:40 Admit Orders ADM 01/02/25 Transmitted 10:44 Saline Lock Iv CPOE 01/02/25 Transmitted 10:44 Nephrology Consult CONPHYSVC 01/02/25 Transmitted 10:44 *Nursing CPOE 01/02/25 Transmitted Communication: 10:44 Furosemide 40mg Vial PHA 01/02/25 In Process (Lasix 40mg Vial) 11:00 Ventilator Settings RT 01/02/25 Transmitted 08:00 Hepatitis B Core Total LAB 01/02/25 In Process 11:37 Hepatitis B Surface LAB 01/02/25 In Process Antibody 11:37 In-Patient Dialysis DIAL 01/02/25 Transmitted Treatment 11:37 Obtain Consent For CPOE 01/02/25 Transmitted Hemodialysi 11:37 Hepatitis B Surface LAB 01/02/25 In Process Antigen 11:37 0.9%Nacl 1000ml (Ns PHA 01/02/25 In Process 1000ml) 12:00 Hemodialysis Nurings DIAL 01/02/25 Transmitted Orders 11:37 Calcium Gluc 1gm PHA 01/02/25 Complete (Calcium Gluc 1gm 12:00 Current Medications Medications (Trade) Dose Ordered Sig/Fortunato Route PRN Reason Start Time Stop Time Status Last Admin Dose Admin Calcium Gluconate (Calcium Gluc 1gm Vial) 1 gm PROTOCOL STAT IVPB 01/02/25 10:08 01/02/25 10:12 DC 01/02/25 11:55 Sodium Bicarbonate (Sodium Bicarb 50meq 50ml Vial) 100 meq ONCE STAT IV 01/02/25 10:08 01/02/25 10:12 DC 01/02/25 11:45 Vital Signs Date Time Temp Pulse Resp B/P (MAP) Pulse Ox O2 Delivery O2 Flow Rate FiO2 01/02/25 12:29 98.1 99 26 159/91 100 Bi-PAP+ 100 01/02/25 11:09 110 38 60 01/02/25 10:52 98.1 110 33 167/105 96 Non-Rebreather+ 15 100 11/3/25 09:02 98.8 103 20 180/91 96 Nonrebreathing Mask 8.0 Medical Decision Making MDM MDM: Differential diagnosis: Rationale: Tests considered and ordered secondary to shared decision making include: labs, ECG and radiology Previous outside records reviewed: Old ER visits. Risk of complication and/or morbidity or mortality of patient management: None Medications-Per medication reconciliation Need for hospitalization: Patient does meet criteria for hospitalization. Need for emergency major/minor surgery: No There are no social concerns with this patient. Prescription drug management Prescriptions will include symptomatic care Patient's prior external medical records from other ER visits were reviewed by me as indicated. Prior testing and results from previous visits were reviewed. Prior tests were taken into account with medical decision making and resource utilization, independent historian/historians were used to obtain complete m edical history. I independently interpreted the test that were performed, results were reviewed by me and considered findings on radiology if ordered. Medical management and examination interpretation discussions were had by me with other qualified healthcare professionals as indicated for the patient's care. 59-year-old female with fluid overload end-stage renal disease, on dialysis elevated potassium, EKG stable placed on BiPAP, admitting for emergent dialysis, and also given calcium and bicarb for hyperkalemia in serum Critical Care Note Comment(s) Total critical care time was 33 minutes. Excluding time for procedures. Management of critically ill patient with concern for acute decompensation. Management included interpretation of laboratory values and imaging, hemodynamics, time for consultation with consultants and admitting physician. DX & DISP Disposition: Inpatient Departure Impression: Primary Impression: Acute pulmonary edema Additional Impressions: End-stage renal disease on hemodialysis, Acute respiratory distress Condition: Stable Referrals: JANET CROSS MD (PCP) KING PALAFOX MD Jan 02, 2025 13:20
--- NOTE | 2025-01-02 13:51 | NUR ---
[facility] [employer] DR[employer] AT BEDSIDE FOR TREATMENT.
--- NOTE | 2025-01-02 17:36 | NUR ---
DIALYSIS COMPLETE: DIALYSIS NURSE REPORTS 3 LITERS REMOVED IN 3 HOURS.
--- NOTE | 2025-01-02 17:45 | NUR ---
BIPAP REMOVED FOR DINNER.
--- NOTE | 2025-01-02 22:08 | HP ---
HISTORY AND PHYSICAL NOTE DATE OF CONSULTATION: 01/02/25 REASON FOR CONSULTATION: dyspnea HISTORY OF PRESENT ILLNESS: 59-year-old female presenting to the emergency department history of end-stage renal disease missed dialysis for not feeling well on Thursday presented today to the emergency department with trouble breathing, by EMS. no Fever no cough Allergies: Coded Allergies: No Known Drug Allergies (Verified Allergy, 09/16/11) Home Meds Active Scripts Hydrocodone/Acetaminophen (Hydrocodon-Acetaminophen 5-325) 5 Mg-325 Mg Tablet, 1 EACH PO Q4HPRN PRN for PAIN for 7 Days, #42 TAB 0 Refills Prov:JOSE GARCIA MD 10/23/23 Cyclobenzaprine HCl (Cyclobenzaprine HCl) 10 Mg Tablet, 5 MG PO Q8H PRN for MUSCLE SPASMS, #45 TAB 0 Refills Prov:JOSE GARCIA MD 02/05/23 Reported Medications Calcium Carbonate (Tums) 300 Mg Calcium (750 Mg) Tab.chew, 1 TAB PO BID PRN for INDIGESTION for 30 Days, #60 TAB 0 Refills 10/24/24 Diphenhydramine HCl (Benadryl) 25 Mg Capsule, 1 CAP PO HS PRN for SLEEP for 30 Days, #30 CAP 0 Refills 10/24/24 Atorvastatin Calcium (Atorvastatin Calcium) 10 Mg Tablet, 1 TAB PO DAILY for 30 Days, #30 TAB 0 Refills 10/23/24 Folic Acid/Vitamin B Comp W-C (Kerrie-Werner Tablet) 0.8 Mg Tablet, 1 TAB PO DAILY for 30 Days, #30 TAB 0 Refills 10/23/24 Carvedilol (Carvedilol) 3.125 Mg Tablet, 1 TAB PO BID for 30 Days, #60 TAB 0 Refills 10/23/24 Apixaban (Eliquis) 2.5 Mg Tablet, 1 TAB PO BID for 30 Days, #60 TAB 0 Refills 10/23/24 Losartan Potassium (Losartan Potassium) 25 Mg Tablet, 1 TAB PO DAILY for 30 Days, #30 TAB 0 Refills 10/23/24 Past Medical History Past Medical History: Renal Failure Surgical History: Unknown Surgical History Other: BILAT KNEE REPLACEMENT, RT SHOULDER SX Social History: Negative History: Not Applicable Review of System Dictation Constitutional: Negative for fever,chills, and weight loss Eyes: Negative for injury, pain,redness, and discharge ENT: Negative for injury,pain or swelling Cardiovascular: Negative for chest pain, palpitations, and edema Respiratory: Per HPI Abdomen/GI: Negative for abdominal pain, nausea, vomiting, diarrhea, and constipation Back: Negative for injury and pain : Negative for injury, bleeding and discharge MS/Extremity: Negative for injury and deformity Skin: Negative for rash, and discoloration Neuro: Per HPI ALLERGIES: Coded Allergies: No Known Drug Allergies (Verified Allergy, 09/16/11) HOME MEDS: Active Scripts Hydrocodone/Acetaminophen (Hydrocodon-Acetaminophen 5-325) 5 Mg-325 Mg Tablet, 1 EACH PO Q4HPRN PRN for PAIN for 7 Days, #42 TAB 0 Refills Prov:JOSE GARCIA MD 10/23/23 Cyclobenzaprine HCl (Cyclobenzaprine HCl) 10 Mg Tablet, 5 MG PO Q8H PRN for MUSCLE SPASMS, #45 TAB 0 Refills Prov:JOSE GARCIA MD 02/05/23 Reported Medications Calcium Carbonate (Tums) 300 Mg Calcium (750 Mg) Tab.chew, 1 TAB PO BID PRN for INDIGESTION for 30 Days, #60 TAB 0 Refills 10/24/24 Diphenhydramine HCl (Benadryl) 25 Mg Capsule, 1 CAP PO HS PRN for SLEEP for 30 Days, #30 CAP 0 Refills 10/24/24 Atorvastatin Calcium (Atorvastatin Calcium) 10 Mg Tablet, 1 TAB PO DAILY for 30 Days, #30 TAB 0 Refills 10/23/24 Folic Acid/Vitamin B Comp W-C (Kerrie-Werner Tablet) 0.8 Mg Tablet, 1 TAB PO DAILY for 30 Days, #30 TAB 0 Refills 10/23/24 Carvedilol (Carvedilol) 3.125 Mg Tablet, 1 TAB PO BID for 30 Days, #60 TAB 0 Refills 10/23/24 Apixaban (Eliquis) 2.5 Mg Tablet, 1 TAB PO BID for 30 Days, #60 TAB 0 Refills 10/23/24 Losartan Potassium (Losartan Potassium) 25 Mg Tablet, 1 TAB PO DAILY for 30 Days, #30 TAB 0 Refills 10/23/24 INPATIENT MEDS: Current Medications Medications Dose Ordered Sig/Fortunato Start Time Stop Time Status Last Admin Furosemide 40 mg Q8H 01/02/25 11:00 02/01/25 10:59 01/02/25 18:59 Sodium Chloride 1,000 ml @ 0 mls/hr ONCE 01/02/25 12:00 02/01/25 11:59 01/02/25 14:30 VITAL SIGNS Vital Signs Date Time Temp Pulse Resp B/P (MAP) Pulse Ox O2 Delivery O2 Flow Rate FiO2 01/02/25 21:36 99.3 99 18 123/66 97 Nasal Cannula 3.0 01/02/25 20:43 100 Bi-PAP+ 60 01/02/25 20:17 100.4 93 21 144/66 100 BIPAP 60 01/02/25 19:46 96 22 45 01/02/25 19:04 97.5 90 20 136/66 100 CPAP+ 8 100 01/02/25 17:25 97.5 90 16 147/66 100 BIPAP 60 01/02/25 17:15 97.5 88 16 142/74 100 BIPAP 60 01/02/25 17:08 99.0 92 24 149/78 100 CPAP+ 8 100 01/02/25 17:00 88 16 149/76 100 BIPAP 60 01/02/25 16:45 90 16 149/78 100 BIPAP 60 01/02/25 16:30 87 16 166/78 100 BIPAP 60 01/02/25 16:15 85 16 164/75 100 BIPAP 60 01/02/25 16:00 75 16 160/70 100 BIPAP 60 01/02/25 15:45 70 16 166/79 100 BIPAP 60 01/02/25 15:30 69 16 169/79 100 BIPAP 60 01/02/25 15:15 89 16 171/74 100 BIPAP 60 01/02/25 15:00 90 18 160/69 100 BIPAP 60 01/02/25 14:45 94 18 166/77 100 BIPAP 60 01/02/25 14:30 92 18 172/77 100 BIPAP 60 01/02/25 14:17 104 35 60 01/02/25 14:15 97.7 93 18 164/84 100 BIPAP 60 01/02/25 13:45 97.7 99 16 156/76 100 BIPAP 60 01/02/25 13:30 99.9 104 24 147/89 98 Bi-PAP+ 10 100 01/02/25 12:29 98.1 99 26 159/91 100 Bi-PAP+ 100 01/02/25 10:52 98.1 110 33 167/105 96 Non-Rebreather+ 15 100 01/02/25 10:47 110 38 60 01/02/25 09:02 98.8 103 20 180/91 96 Nonrebreathing Mask 8.0 PHYSICAL EXAM Initial Vital Sign VS Vital Signs Date Time Temp Pulse Resp B/P (MAP) Pulse Ox O2 Delivery O2 Flow Rate FiO2 01/02/25 09:02 98.8 103 20 180/91 96 Nonrebreathing Mask 8.0 01/02/25 10:52 100 Physical Exam Dictation General: awake, alert, patient appears ill Head/Face: Normocephalic, atraumatic Eyes: PERRL, EOMI, vision at baseline ENT: oral cavity clear, TMs clear, no signs of infection Neck: Trachea midline, supple, no nuchal rigidity Cardiovascular: Tachycardic normal S1/S2, No MRGs, no JVD Respiratory: Diminished bilateral breath sounds with tachypnea Abdomen: Soft, non-tender, non-distended, normal bowel sounds, no guarding or rebound. Skin: Warm, dry, normal turgor, no rash MS/Extremity: Pulses equal, no cyanosis, neurovascular intact, FROM Neuro: COAx4, GCS 15, strength 5/5, CN 2-12 intact, normal cerebellar exam, norm al gait, Psych: Normal behavior, mood, and affect normal LABORATORY RESULTS Laboratory Tests 01/02/25 09:17: White Blood Count 10.9, Red Blood Count 3.63, Hemoglobin 11.4, Hematocrit 35.4, Mean Corpuscular Volume 97.5, Mean Corpuscular Hemoglobin 31.4, Mean Corpuscular Hemoglobin Concent 32.2, Red Cell Distribution Width 14.4, Platelet Count 314, Mean Platelet Volume 9.3, Immature Granulocyte % (Auto) 0.3, Neutrophils (%) (Auto) 83.0, Lymphocytes (%) (Auto) 8.6, Monocytes (%) (Auto) 6.6, Eosinophils (%) (Auto) 0.8, Basophils (%) (Auto) 0.7, Neutrophils # (Auto) 9.0, Lymphocytes # (Auto) 0.9, Monocytes # (Auto) 0.7, Eosinophils # (Auto) 0.09, Basophils # (Auto) 0.08, Absolute Immature Granulocyte (auto 0.03, Nucleated Red Blood Cells 0.0, White Cell Morphology Comment See comments, Sodium Level 130, Potassium Level 6.0, Chloride Level 93, Carbon Dioxide Level 22, Blood Urea Nitrogen 47, Creatinine 9.0, Glomerular Filtration Rate Calc 5, Random Glucose 72, Lactic Acid Level 1.3, Total Calcium 8.6, Total Bilirubin 0.6, Direct Bilirubin 0.2, Aspartate Amino Transf (AST/SGOT) 32, Alanine Aminotransferase (ALT/SGPT) 21, Alkaline Phosphatase 118, Total Creatine Kinase 87, Troponin I High Sensitivity 46, B-Type Natriuretic Peptide 2590, Total Protein 7.9, Albumin 3.5 01/02/25 10:40: Blood Gas Specimen Type Arterial, Arterial Blood pH 7.342, Arterial Blood Partial Pressure CO2 34, Arterial Blood Partial Pressure O2 80.0, Arterial Blood HCO3 17.9, Arterial Blood Oxygen Saturation 95.3, Arterial Blood Base Excess - 6.8, Blood Gas Temperature 37.0, Blood Gas Flow-by 15.00, Blood Gas Vent Mode NRM, FiO2 100.0, Blood Gas Specimen Comment RR, 01/02/25 12:20: Influenza Type A Antigen Negative For Type A, Influenza Type B Antigen Negative For Type B, SARS-CoV-2 Antigen (Rapid) PRESUMPTIVE NEGATIVE PROBLEM LIST: (1) Hypertensive emergency ICD Codes: I16.1 - Hypertensive emergency (2) Acute pulmonary edema ICD Codes: J81.0 - Acute pulmonary edema (3) Acute respiratory distress ICD Codes: R06.03 - Acute respiratory distress (4) End-stage renal disease on hemodialysis ICD Codes: N18.6 - End stage renal disease; Z99.2 - Dependence on renal dialysis PLAN consult nephrology for hemodialysis ODESSA MCGOVERN MD Jan 02, 2025 22:08
[2025-01-03] VITALS (22 sets, daily range): BP systolic 120–151; BP diastolic 55–83; PULSE 64–99; RESP 18–29; TEMP 98.2–99.6; O2SAT 96–100
--- NOTE | 2025-01-03 08:12 | NUR ---
ROUNDS DR. CROSS ROUNDED AT BEDSIDE. VORB PATIENT OK TO BE DISCHARGED AFTER DIALYSIS TREATMENT TODAY. NO FURTHER ORDERS GIVEN. ORDERS PLACED AND CARRIED OUT.
--- NOTE | 2025-01-03 10:52 | NUR ---
DCP: HOME Pt goes to [facility] dialysis TTS at 9am, friend drives to treatments. Pt lives at home alone, has provider services 30hrsa week thru [facility]. They assist pt with ADLS, home management, meal prep and laundry. Pt uses a regular walker to ambulate. No HH. PCP is Disha Galindo. Daughters Megan [phone] and Yolanda [phone]. [place].
--- NOTE | 2025-01-03 13:00 | NUR ---
DISCHARGE DISCHARGE ORDERS OBTAINED FOR PATIENT TO BE DISCHARGED HOME. DISCHARGE INSTRUCTIONS AND DOCUMENTATION GIVEN TO PATIENT AT BEDSIDE. VOICED UNDERSTANDING AND ALL QUESTIONS ANSWERED. IV DISCONTINUED, CATHETER INTACT, NO S/S OF INFECTION NOTED TO AREA. BANDS REMOVED PRIOR TO DISCHARGE. PENDING TRANSPORTATION FROM , HOWEVER STATED WILL BE AFTER 5PM. CHARGE NURSE AND MD NOTIFIED. PENDING ARRIVAL.
[2025-01-03 13:58] LABS: HEPATITIS B CORE AB TOTAL Non-Reactive (Nonreactive); HEPATITIS B SURFACE ANTIBODY Positive (Reactive)
--- NOTE | 2025-01-03 18:00 | NUR ---
DISCHARGE PATIENT LEFT VIA WHEELCHAIR, ACCOMPANIED BY . NO S/S OF DISTRESS NOTED.
== END 2025-01-03 17:55 | disposition home or self-care (01) ==
LOC: EDH 09:00 → EDHIP 10:44 → 4CH 20:59
PROVIDERS: ADMIT Internal Medicine; ATTEND Internal Medicine
DX: I16.1 Hypertensive emergency (principal); Z20.822 Contact with and (suspected) exposure to COVID-19; J81.0 Acute pulmonary edema; R06.03 Acute respiratory distress; N18.6 End stage renal disease; Z96.653 Presence of artificial knee joint, bilateral; Z96.611 Presence of right artificial shoulder joint; Z99.2 Dependence on renal dialysis; Z79.899 Other long term (current) drug therapy
CPT/HCPCS: 96376 ×2; 96361 ×2; 96365; 96366; 96375; 96368; 99291; 93005; 36600; 82550; 80076; 84484; 80048; 82803; 83880; 85025; 87040 ×2; 87804 ×2; 83605; 86706; 87340; 86704; 87426; 36415; 71045; 94660 ×2; 90935 ×2; G0378 ×31; J3490; J0612; J1938 ×4; G0257